=== PATIENT | male | born 1950 | race Caucasian/White ===

== ENCOUNTER → 2021-07-12 | Outpatient (CLI) | payer BC ==
--- NOTE | 2021-07-12 15:38 | CT ---
EXAMINATION TYPE: CT abdomen pelvis w con DATE OF EXAM: 07/12/2021 COMPARISON: NONE HISTORY: 70-year-old male R10.31, abdominal and pelvic pain, left lower quadrant pain, left flank mayte n. TECHNIQUE: Contiguous axial scanning of the abdomen and pelvis following administration of 100 ml Iso elma-370 IV contrast. Delayed images through the kidneys and coronal/sagittal reconstructions perform ed. CT DLP: 1920 mGycm Automated exposure control for dose reduction was used. FINDINGS: Heart normal size without pericardial effusion. Volume loss/consolidation anterior basilar segment left lower lobe. No pleural effusion. There is mao e interstitial changes and possible mosaic attenuation/groundglass in the visualized lower lobes. No pleural effusion. Liver borderline in size at 17.4 cm. Tiny 7 mm cyst posterior right liver lobe. Portal venous system is patent. No biliary ductal dilatation. Gallbladder, right adrenal gland, spleen, and mildly atrophic pancreas show no gross abnormalities. There is either a 2.3 cm cyst or lipid rich adenoma of the left adrenal gland. Right kidney slightly malrotated. Multiple cysts are present, largest measuring 10.6 cm. Multiple sma ller cysts left kidney, largest measuring 2.3 cm. Symmetric uptake of contrast by each kidney. No dilated small bowel, free fluid, or free air. No mesenteric or retroperitoneal lymphadenopathy. Mild overall stool burden. Normal appendix. Mildly redundant sigmoid colon. No pericolic inflammatory change. Prostate gland measures 5.3 cm wide. Bladder is collapsed but shows mild to moderate cervical vertebr al wall thickening and slight perivesicular fat stranding. No abnormal fluid collection in the pelvis or pelvic lymphadenopathy. Moderate atelectatic plaque and calcification is present throughout the abdominal aorta and iliac art eries. Aneurysm infrarenal abdominal aorta up to 4.7 cm with crescentic plaque narrowing the lumen do wn to 2.3 cm. 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 Reconstitution at the common iliac artery bifurcation. Mild fusiform aneurysm proximal left internal iliac artery at 1.2 cm. CTA reported separately. Bones: Mild degenerative change of the hips. Degenerative change left greater than right SI joints wi th some bony ankylosis on the left. Hypertrophic facet arthropathy mid to lower lumbar spine. Grade 1 retrolisthesis L3-L4. Posterior dis c bulges and herniations L3-S1 levels. No high-grade canal compromise seen. IMPRESSION: 1. CT ANGIOGRAPHY OF THE CHEST, ABDOMEN, AND PELVIS REPORTED SEPARATELY. 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 ADDITIONAL 4 CM LONG SEGMENT OCCLUSION RIGHT COMMON ILIAC ARTERY. 2. MULTIPLE BILATERAL RENAL CYSTS, LARGEST ON THE RIGHT MEASURING UP TO 10.6 CM. LARGEST ON THE LEFT MEASURING 2.3 CM. 3. INCIDENTAL 2.3 CM CYST VERSUS LIPID RICH LEFT ADRENAL ADENOMA. 4. CIRCUMFERENTIAL BLADDER WALL THICKENING COULD REPRESENT CYSTITIS OR CHRONIC BLADDER WALL HYPERTROP HY. THERE IS PROSTATOMEGALY AND 5.3 CM WIDE. CORRELATE FOR BPH. 5. VOLUME LOSS AND/OR CONSOLIDATION ANTERIOR BASILAR SEGMENT LEFT LOWER LOBE. CORRELATE FOR ANY SYMPT OMS OF PNEUMONIA. THREE-MONTH FOLLOW-UP CT CHEST TO REASSESS.
== END | disposition home or self-care (01) ==
LOC: RADCTMAIN 10:25
PROVIDERS: ATTEND Urology
DX: I71.4 Abdominal aortic aneurysm, without rupture (principal); I72.3 Aneurysm of iliac artery; I74.5 Embolism and thrombosis of iliac artery; N28.1 Cyst of kidney, acquired; N32.89 Other specified disorders of bladder; N40.0 Benign prostatic hyperplasia without lower urinary tract symptoms
CPT/HCPCS: 74177; 36415; Q9967

== ENCOUNTER → 2021-07-12 | Outpatient (CLI) | payer BC ==
--- NOTE | 2021-07-12 15:58 | CT ---
CT angiogram of the thoracic and abdominal aorta HISTORY: Aneurysm, I 71.4 Helical acquisition obtained through the aorta pre- and postadministration of 100 cc Isovue-370 IV. A utomated exposure control for dose reduction. Three-dimensional reconstructions were performed on an alternate workstation. Correlation to CT scan 07/12/2021, bone scan to 07/30/2021 Atheromatous changes are present within the thoracic and abdominal aorta. No evident dissection. Root of the aorta measures approximately 3.5 cm. Proximal ascending aorta is 3.9 cm. Proximal descending aorta measures 2.9 cm, at the level of the diaphragmatic hiatus the aorta measures 2.7 cm. There are 3 super aortic branch vessels. The innominate, left and right common carotid, left and right subclavi an arteries are patent centrally. The celiac axis, superior mesenteric artery, renal arteries, inferi or mesenteric artery are patent. There is hypertrophy lumbar branch present at L3-L4 level in the rig ht. Infrarenal abdominal aortic aneurysm is present measuring 4.7 cm. There is a large amount of yair nal plaque. Left common iliac artery is aneurysmal and measures 2.6 cm, internal iliac arteries, exte rnal iliac arteries are patent bilaterally, the right common iliac artery is occluded proximally, the re may be reconstitution by the internal iliac artery. Common femoral arteries, proximal deep and sup erficial femoral arteries are patent. Interstitial changes are present within the lungs. Centrilobular and paraseptal emphysema is present. There are areas of pleural thickening present. Some probable lingular scarring is suspected. Of note in the right ilium inferiorly there is an area of lucency extending from the sacroiliac joint with some associated sclerosis, differential includes insufficiency fracture. See dictated report for abdominal findings CT same date. IMPRESSION: Infrarenal abdominal aortic aneurysm. Right common iliac artery occlusion. Additional fin dings within the abdomen dictated in separate report. Consider insufficiency fracture ilium although findings may be chronic, no abnormal activity noted on bone scan.
== END | disposition home or self-care (01) ==
LOC: RADCTMAIN 10:19
PROVIDERS: ATTEND Internal Medicine Interventional Cardiology
DX: I71.4 Abdominal aortic aneurysm, without rupture (principal); I74.5 Embolism and thrombosis of iliac artery
CPT/HCPCS: 82565; 84520; 71275; 36415; 74174; Q9967

== ENCOUNTER → 2021-07-12 | Outpatient (CLI) | payer BC ==
--- NOTE | 2021-07-12 13:40 | NM ---
EXAMINATION TYPE: NM bone scan whole body DATE OF EXAM: 07/12/2021 COMPARISON: NONE HISTORY: Low back pain Delayed whole-body scanning was performed following the injection of 23 mCi Tc 99m MDP. Images acqui red 3 hours post injection. FINDINGS: Mild degenerative uptake about the shoulders, sternoclavicular joints, hips knees and bilateral great toes. Degenerative uptake mid thoracic spine and lower lumbar spine. No evidence for intense uptake to suggest fracture or osseous lesion. IMPRESSION: Degenerative uptake as noted.
== END | disposition home or self-care (01) ==
LOC: RADNMMAIN 09:25
PROVIDERS: ATTEND Physical Medicine & Rehabilitation
DX: M19.012 Primary osteoarthritis, left shoulder (principal); M19.011 Primary osteoarthritis, right shoulder; M16.0 Bilateral primary osteoarthritis of hip; M17.0 Bilateral primary osteoarthritis of knee; M19.072 Primary osteoarthritis, left ankle and foot; M19.071 Primary osteoarthritis, right ankle and foot; M47.814 Spondylosis without myelopathy or radiculopathy, thoracic region; M47.816 Spondylosis without myelopathy or radiculopathy, lumbar region
CPT/HCPCS: 78306; A9503

== ENCOUNTER 2022-12-20 09:06 | Inpatient (IN) | payer OTHER, MEDICARE ==
[2022-12-20] MEDS ORDERED: ASPIRIN 81 MG PO STA (09:29)
--- NOTE | 2022-12-20 09:31 | ED ---
General Adult HPI - General Chief complaint: Chest Pain Stated complaint: Chest Pain Time Seen by Provider: 12/20/22 09:16 Source: patient Mode of arrival: ambulatory Limitations: no limitations - History of Present Illness Initial comments: Dictation was produced using [employer] dictation software. please excuse any grammatical, word or spelling errors. Chief Complaint: 72-year-old male with past medical history coronary artery disease, status post stents presents to emergency department for chest pain History of Present Illness: Patient 72-year-old male presents emergency department with chest pain. States that on Saturday he had an episode of sharp chest pain to his left upper chest lasted approximately 30 minutes. States it was associated with nausea vomiting. States that that resolved on its own however he is left with a ongoing chest pressure since then. Patient states that pressure is nonradiating. It's minimal with a score of 1 on a 1-10 pain scale. He is accompanied by his who was worried that he may have a heart attack. The ROS documented in this emergency department record has been reviewed and confirmed by me. Those systems with pertinent positive or negative responses have been documented in the HPI. All other systems are other negative and/or noncontributory. - Related Data Home Medications Medication Instructions Recorded Confirmed Ascorbic Acid [Vitamin C] 1,000 mg PO DAILY 12/20/22 12/20/22 Aspirin EC [Ecotrin Low Dose] 81 mg PO DAILY 12/20/22 12/20/22 Cholecalciferol [Vitamin D3 (125 125 mcg PO DAILY 12/20/22 12/20/22 Mcg = 5000 Iu)] Ibuprofen [Motrin] 600 mg PO Q8HR PRN 12/20/22 12/20/22 Losartan Potassium 100 mg PO DAILY 12/20/22 12/20/22 Metoprolol Tartrate [Lopressor] 25 mg PO BID 12/20/22 12/20/22 Nitroglycerin Sl Tabs [Nitrostat] 0.4 mg SUBLINGUAL Q5M PRN 12/20/22 12/20/22 Pantoprazole [Protonix] 40 mg PO DAILY 12/20/22 12/20/22 Pravastatin Sodium [Pravachol] 80 mg PO HS 12/20/22 12/20/22 Tamsulosin [Flomax] 0.4 mg PO DAILY 12/20/22 12/20/22 traMADol HCL 50 mg PO TID PRN 12/20/22 12/20/22 Allergies Allergy/AdvReac Type Severity Reaction Status Date / Time No Known Allergies Allergy Verified 12/20/22 10:27 Review of Systems ROS Statement: Those systems with pertinent positive or pertinent negative responses have been documented in the HPI. ROS Other: All systems not noted in ROS Statement are negative. Past Medical History Past Medical History: GERD/Reflux, Hyperlipidemia, Hypertension, Myocardial Infarction ([place]), Prostate Disorder Additional Past Medical History / Comment(s): AAA History of Any Multi-Drug Resistant Organisms: None Reported Past Surgical History: Heart Catheterization With Stent, Hernia Repair Past Psychological History: No Psychological Hx Reported Smoking Status: Current every day smoker Past Alcohol Use History: None Reported Past Drug Use History: None Reported General Exam - General Exam Comments Initial Comments: PHYSICAL EXAM: General Impression: Alert and oriented x3, not in acute distress HEENT: Normocephalic atraumatic, extra-ocular movements intact, pupils equal and reactive to light bilaterally, mucous membranes moist. Cardiovascular: Heart regular rate and rhythm Chest: Able to complete full sentences, no retractions, no tachypnea Abdomen: abdomen soft, non-tender, non-distended, no organomegaly Musculoskeletal: Pulses present and equal in all extremities, no peripheral edema Motor: no focal deficits noted Neurological: CN II-XII grossly intact, no focal motor or sensory deficits noted Skin: Intact with no visualized rashes Psych: Normal affect and mood Limitations: no limitations Course Vital Signs 12/20/22 12/20/22 09:10 09:20 Temperature 98.5 F Pulse Rate 93 Respiratory 16 18 Rate Blood Pressure 117/66 O2 Sat by Pulse 96 Oximetry EKG Findings - EKG Comments: EKG Findings:: My EKG interpretation: Ventricular rate 75, sinus rhythm,. 145, QRS 92, QTC 418. No [place] prolongation, no QTC prolongation, no ST or T-wave changes noted. Overall, this EKG is unremarkable Medical Decision Making - Medical Decision Making Was pt. sent in by a medical professional or institution (, PA, SECURITIES ATTORNEY, urgent care, hospital, or care home...) When possible be specific @ -No Did you speak to anyone other than the patient for history (EMS, parent, family, police, friend...)? What history was obtained from this source @ -No Did you review nursing and triage notes (agree or disagree)? Why? @ -I reviewed and agree with nursing and triage notes Were old charts reviewed (outside hosp., previous admission, EMS record, old EKG, old radiological studies, urgent care reports/EKG's, care home records)? Report findings @ -Imaging was reviewed showing the patient has history of aneurysms Differential Diagnosis (chest pain, altered mental status, abdominal pain women, abdominal pain men, vaginal bleeding, musculoskeletal, weakness, fever, dyspn ea, syncope, headache, dizziness, GI bleed, back pain, seizure, CVA, palpatations, mental health)? @ -Differential Chest Pain: Stable Angina, Unstable Angina, STEMI, NSTEMI Aortic Dissection, Pneumothorax, Musculoskeletal, Esophageal Spasm GERD, Cholecystitis, Pancreatitis, Zoster, this is not meant to be an all-inclusive list. EKG interpreted by me (3pts min.). @ -See above X-rays interpreted by me (1pt min.). @ -Chest x-ray shows possible pneumonia CT interpreted by me (1pt min.). @ -None done U/S interpreted by me (1pt. min.). @ -None done What testing was considered but not performed or refused? (CT, X-rays, U/S, labs)? Why? @ -None What meds were considered but not given or refused? Why? @ -None Did you discuss the management of the patient with other professionals (professionals i.e. , PA, SECURITIES ATTORNEY, lab, RT, psych nurse, clinical social worker, database administration associate, teacher, asset protection officer, block and case maker)? Give summary @ -Case discussed with [facility] hospitalist group for admission Was smoking cessation discussed for >3mins.? @ -No Was critical care preformed (if so, how long)? @ -No Were there social determinants of health that impacted care today? How? (Homelessness, low income, unemployed, alcoholism, drug addiction, transportation, low edu. Level, literacy, decrease access to med. care, custodial, rehab)? @ -No Was there de-escalation of care discussed even if they declined (Discuss DNR or withdrawal of care, Hospice)? DNR status @ -No What co-morbidities impacted this encounter? (DM, HTN, Smoking, COPD, CAD, Ca ncer, CVA, ARF, Chemo, Hep., AIDS, mental health diagnosis, sleep apnea, morbid obesity)? @ -History of CAD Was patient admitted / discharged? Hospital course, mention meds given and route, prescriptions, significant lab abnormalities, going to OR and other pert inent info. @ -72-year-old male presents emergency department for chest pain. Vital signs are stable. Patient is atypical with typical features. Laboratory evaluation obtained. Labs are within acceptable limits so for some mild leukocytosis. Troponin is negative. Chest x-ray shows patchy infiltrates suspicious for pneumonia. Patient does not have any overwhelming respite or infectious symptoms. Patient be admitted for cardiac monitoring. Undiagnosed new problem with uncertain prognosis? @ -No Drug Therapy requiring intensive monitoring for toxicity (Heparin, Nitro, Insulin, Cardizem)? @ -No Were any procedures done? @ -No Diagnosis/symptom? Acute, or Chronic, or Acute on Chronic? Uncomplicated (without systemic symptoms) or Complicated (systemic symptoms)? @ -chest pain Side effects of treatment? @ -No Exacerbation, Progression, or Severe Exacerbation? @ -No Poses a threat to life or bodily function? How? (Chest pain, [place], [place], pneumonia, PE, COPD, DKA, ARF, appy, cholecystitis, CVA, Diverticulitis, Homicidal, Suicidal, threat to staff... and all critical care pts) @ -yes - Lab Data Result diagrams: 12/20/22 09:39 12/20/22 09:39 Lab Results 12/20/22 12/20/22 12/20/22 Range/Units 09:39 09:39 09:39 WBC 12.6 H (3.8-10.6) k/uL RBC 4.19 L (4.30-5.90) m/uL Hgb 13.5 (13.0-17.5) gm/dL Hct 38.6 L (39.0-53.0) % MCV 92.1 (80.0-100.0) fL MCH 32.1 (25.0-35.0) pg MCHC 34.9 (31.0-37.0) g/dL RDW 14.0 (11.5-15.5) % Plt Count 168 (150-450) k/uL MPV 8.2 Neutrophils % 86 % Lymphocytes % 7 % Monocytes % 5 % Eosinophils % 1 % Basophils % 0 % Neutrophils # 10.9 H (1.3-7.7) k/uL Lymphocytes # 0.8 L (1.0-4.8) k/uL Monocytes # 0.7 (0-1.0) k/uL Eosinophils # 0.1 (0-0.7) k/uL Basophils # 0.0 (0-0.2) k/uL PT 10.4 (9.0-12.0) sec INR 1.0 (<1.2) APTT 27.3 (22.0-30.0) sec Sodium 138 (137-145) mmol/L Potassium 3.4 L (3.5-5.1) mmol/L Chloride 103 (98-107) mmol/L Carbon Dioxide 24 (22-30) mmol/L Anion Gap 11 mmol/L BUN 18 (9-20) mg/dL Creatinine 0.83 (0.66-1.25) mg/dL Est GFR (CKD-EPI)AfAm >90 (>60 ml/min/1.73 sqM) Est GFR (CKD-EPI)NonAf 87 (>60 ml/min/1.73 sqM) Glucose 118 H (74-99) mg/dL Calcium 9.1 (8.4-10.2) mg/dL Magnesium 1.8 (1.6-2.3) mg/dL Total Bilirubin 1.4 H (0.2-1.3) mg/dL AST 20 (17-59) U/L ALT 16 (4-49) U/L Alkaline Phosphatase 89 (38-126) U/L Troponin I (0.000-0.034) ng/mL Total Protein 6.7 (6.3-8.2) g/dL Albumin 3.6 (3.5-5.0) g/dL 12/20/22 Range/Units 09:39 WBC (3.8-10.6) k/uL RBC (4.30-5.90) m/uL Hgb (13.0-17.5) gm/dL Hct (39.0-53.0) % MCV (80.0-100.0) fL MCH (25.0-35.0) pg MCHC (31.0-37.0) g/dL RDW (11.5-15.5) % Plt Count (150-450) k/uL MPV Neutrophils % % Lymphocytes % % Monocytes % % Eosinophils % % Basophils % % Neutrophils # (1.3-7.7) k/uL Lymphocytes # (1.0-4.8) k/uL Monocytes # (0-1.0) k/uL Eosinophils # (0-0.7) k/uL Basophils # (0-0.2) k/uL PT (9.0-12.0) sec INR (<1.2) APTT (22.0-30.0) sec Sodium (137-145) mmol/L Potassium (3.5-5.1) mmol/L Chloride (98-107) mmol/L Carbon Dioxide (22-30) mmol/L Anion Gap mmol/L BUN (9-20) mg/dL Creatinine (0.66-1.25) mg/dL Est GFR (CKD-EPI)AfAm (>60 ml/min/1.73 sqM) Est GFR (CKD-EPI)NonAf (>60 ml/min/1.73 sqM) Glucose (74-99) mg/dL Calcium (8.4-10.2) mg/dL Magnesium (1.6-2.3) mg/dL Total Bilirubin (0.2-1.3) mg/dL AST (17-59) U/L ALT (4-49) U/L Alkaline Phosphatase (38-126) U/L Troponin I <0.012 (0.000-0.034) ng/mL Total Protein (6.3-8.2) g/dL Albumin (3.5-5.0) g/dL Disposition Clinical Impression: Chest pain Disposition: ADMITTED IP TO THIS [facility] Condition: Fair Referrals: Elliott Haile MD [REFERRING] - 1-2 days Decision Time: 11:00
[2022-12-20 09:56] LABS: Basophils % (A) 0 %; Eosinophils # (A) 0.1 k/uL (0-0.7); Eosinophils % (A) 1 %; HCT 38.6 % (39.0-53.0); HGB 13.5 gm/dL (13.0-17.5); Lymphocytes # (A) 0.8 k/uL (1.0-4.8); Lymphocytes % (A) 7 %; MCH 32.1 pg (25.0-35.0); MCHC 34.9 g/dL (31.0-37.0); MCV 92.1 fL (80.0-100.0); Mean Platelet Volume 8.2; Monocytes # (A) 0.7 k/uL (0-1.0); Monocytes % (A) 5 %; Neutrophils # (A) 10.9 k/uL (1.3-7.7); Neutrophils % (A) 86 %; Platelet Count 168 k/uL (150-450); RBC 4.19 m/uL (4.30-5.90); WBC 12.6 k/uL (3.8-10.6)
[2022-12-20 10:09] LABS: ALT 16 U/L (4-49); AST 20 U/L (17-59); African American GFR (CKD) >90 (>60 ml/min/1.73 sqM); Albumin 3.6 g/dL (3.5-5.0); Alkaline Phosphatase 89 U/L (38-126); Anion Gap 11 mmol/L; Blood Urea Nitrogen 18 mg/dL (9-20); Calcium 9.1 mg/dL (8.4-10.2); Carbon Dioxide 24 mmol/L (22-30); Chloride 103 mmol/L (98-107); Glucose 118 mg/dL (74-99); Magnesium 1.8 mg/dL (1.6-2.3); Non-African American GFR(CKD) 87 (>60 ml/min/1.73 sqM); Potassium 3.4 mmol/L (3.5-5.1); Sodium 138 mmol/L (137-145); Total Bilirubin 1.4 mg/dL (0.2-1.3); Total Protein 6.7 g/dL (6.3-8.2)
[2022-12-20 10:13] LABS: Partial Thromboplastin Time 27.3 sec (22.0-30.0); Prothrombin Time 10.4 sec (9.0-12.0)
--- NOTE | 2022-12-20 10:21 | XR ---
EXAMINATION TYPE: XR chest 2V DATE OF EXAM: 12/20/2022 COMPARISON: 04/15/2012 HISTORY: 72-year-old male with chest pain TECHNIQUE: PA and lateral views FINDINGS: Heart normal size. Aorta and pulmonary vasculature within normal limits. Mild diffuse interstitial de nsity has increased from patient's older prior. Prominent patchy left basilar opacity. No pleural eff usion. IMPRESSION: Prominent patchy consolidation throughout the left lower lung. Correlate for pneumonia.
[2022-12-20] MEDS ORDERED: NITROGLYCERIN SL TABS 0.4 MG TAB SUBLINGUAL PRN (11:28)
[2022-12-20] MEDS ORDERED: AZITHROMYCIN 500 MG in SODIUM CHLORIDE 0.9% 250 ML IVPB STA (11:30)
[2022-12-20] MEDS ORDERED: cefTRIAXone IN SWFI 1,000 MG/10 ML SYRINGE IVP STA (11:30)
[2022-12-20] MEDS ORDERED: traMADol 50 MG TAB PO PRN (15:57)
--- NOTE | 2022-12-20 18:30 | CT ---
EXAMINATION TYPE: CT angio chest DATE OF EXAM: 12/20/2022 COMPARISON: CT to 07/30/2021 HISTORY: Positive D-dimer. CT DLP: 359 mGycm. Automated Exposure Control for Dose Reduction was Utilized. CONTRAST: CTA scan of the thorax is performed with IV Contrast, patient injected with 71 mL of Isovue 300. MIP Images are created on CT scanner and reviewed. 3D reconstructed images are created on an independent workstation and reviewed. FINDINGS: LUNGS: The anterior half of the basal segments of the left lower lobe shows dense consolidation and v olume loss consistent with atelectasis and/or bronchopneumonia, with the latter favored radiographica lly. Baseline interstitial lung disease changes are noted, though some of the interstitial changes ma y be acute/subacute. MEDIASTINUM: There is satisfactory enhancement of the pulmonary artery and its branches, with no CT e vidence for pulmonary embolism. There is a generalized pattern of mildly enlarged lymph nodes in the bilateral hilar positions as wel l as the superior and inferior mediastinum. This pattern suggests inflammatory etiology. There is mild cardiomegaly with prominent left a1nd right coronary calcifications. No pericardial eff usion. The aorta is mildly tortuous, with prominent atherosclerotic intimal calcifications and lumina l irregularity throughout its extent. The ascending aorta measures up to 37 mm and the descending aor ta measures up to 32 mm. OTHER: Left adrenal nodule is redemonstrated, as is partially-visualized left renal hypodense focus w hich can be fully characterized with dedicated CT abdomen with contrast. IMPRESSION: 1. Negative for pulmonary embolism. 2. Suspect bronchopneumonia with mild diffuse adenopathy pattern, suggests inflammatory etiology, 9 week follow-up CT can be used to prove resolution of the findings. 3. Aortic ectasia. 4. Cardiomegaly with coronary calcifications.
[2022-12-20] MEDS: METOPROLOL TARTRATE 25 MG TAB PO SCH (19:45)
[2022-12-20] MEDS: PRAVASTATIN SODIUM 80 MG TAB PO SCH (19:45)
--- NOTE | 2022-12-20 20:05 | P.CNPUL ---
History of Present Illness Consult date: 12/20/22 Reason for consult: chest pain History of present illness: 72-year-old male patient, known history of coronary artery disease with known history of coronary stenting presented emergency because of chest pain. Pain was sharp involving the left upper chest area. He also reports some nausea and emesis. The patient also had the chills. The patient started on Saturday and that is old on its own, and subsequently, he started feeling recurrent chest discomfort without any radiation. The main concern at time of admission was an acute coronary event and for that reason the patient came into the hospital. He has known history of hypertension hyperlipidemia and abdominal aortic aneurysm. In the emergency, the patient was hemodynamically stable. The WBC count was at 12.6 with a hemoglobin 15.5 and a platelet count of 168. Sodium was at 138. BAL was 18 with a creatinine of 0.8. His LFTs were essentially within normal limits normal coagulation profile. His troponin was negative. His EKG showed no acute ischemic changes and he was in sinus rhythm. The chest x-ray showed some patchy consolidation involving the left lower lobe and based on that the patient was given a CT angiogram. The CT angiogram showed a left lower lobe pulmonary consolidation and addition to some chronic interstitial changes bilaterally involving the subpleural distribution and some limited upper lobe emphysematous changes. There was no evidence of scattered mediastinal lymphadenopathy the largest being in the subcarinal area. Based on that, the patient was hospitalized. He was started on accommodation of Rocephin and Zithromax. He is currently on room air oxygen. Hemodynamically stable. No evidence of any pulmonary embolism based on the computed tomography scan of the chest. He is known to have an infrarenal abdominal aortic aneurysm and his proximal ascending aorta was measuring around 3.9 cm based on a CT angiogram from 07/12/2021. The infrarenal abdominal aortic aneurysm was measuring 4.7 cm in size and there was large amount of luminal plaquing. Review of Systems Constitutional: Denies chills, Denies fever Eyes: denies as per HPI, denies blurred vision, denies bulging eye, denies decreased vision, denies diplopia, denies discharge, denies dry eye, denies irritation, denies itching, denies pain, denies photophobia, denies loss of peripheral vision, denies loss of vision, denies tunnel vision/blind spots Ears: deny: decreased hearing, ear discharge, earache, tinnitus Ears, nose, mouth and throat: Reports as per HPI Breasts: absent: as per HPI, gynecomastia Cardiovascular: Reports chest pain Respiratory: Reports as per HPI Gastrointestinal: Reports as per HPI Genitourinary: Reports as per HPI Musculoskeletal: Reports as per HPI Musculoskeletal: absent: ankle pain, ankle stiffness, ankle swelling Integumentary: Reports as per HPI Neurological: Reports as per HPI Psychiatric: Reports as per HPI Endocrine: Reports as per HPI Hematologic/Lymphatic: Reports as per HPI Allergic/Immunologic: Reports as per HPI Past Medical History Past Medical History: Coronary Artery Disease (CAD), GERD/Reflux, Hyperlipidemia, Hypertension, Myocardial Infarction (OR), Prostate Disorder Additional Past Medical History / Comment(s): AAA History of Any Multi-Drug Resistant Organisms: None Reported Past Surgical History: Heart Catheterization With Stent, Hernia Repair Past Psychological History: No Psychological Hx Reported Smoking Status: Current every day smoker Past Alcohol Use History: None Reported Past Drug Use History: None Reported Medications and Allergies Home Medications Medication Instructions Recorded Confirmed Type Ascorbic Acid [Vitamin C] 1,000 mg PO DAILY 12/20/22 12/20/22 History Aspirin EC [Ecotrin Low Dose] 81 mg PO DAILY 12/20/22 12/20/22 History Cholecalciferol [Vitamin D3 (125 125 mcg PO DAILY 12/20/22 12/20/22 History Mcg = 5000 Iu)] Ibuprofen [Motrin] 600 mg PO Q8HR PRN 12/20/22 12/20/22 History Losartan Potassium 100 mg PO DAILY 12/20/22 12/20/22 History Metoprolol Tartrate [Lopressor] 25 mg PO BID 12/20/22 12/20/22 History Nitroglycerin Sl Tabs [Nitrostat] 0.4 mg SUBLINGUAL Q5M PRN 12/20/22 12/20/22 History Pantoprazole [Protonix] 40 mg PO DAILY 12/20/22 12/20/22 History Pravastatin Sodium [Pravachol] 80 mg PO HS 12/20/22 12/20/22 History Tamsulosin [Flomax] 0.4 mg PO DAILY 12/20/22 12/20/22 History traMADol HCL 50 mg PO TID PRN 12/20/22 12/20/22 History Allergies Allergy/AdvReac Type Severity Reaction Status Date / Time No Known Allergies Allergy Verified 12/20/22 10:27 Physical Exam Vitals: Vital Signs Temp Pulse Resp BP Pulse Ox 12/20/22 14:24 64 16 128/74 98 12/20/22 09:20 18 12/20/22 09:10 98.5 F 93 16 117/66 96 Intake and Output 12/20/22 12/20/22 12/20/22 06:59 14:59 22:59 Other: Weight 80.739 kg General Impression: Alert and oriented x3, not in acute distress Head exam was generally normal. There was no scleral icterus or corneal arcus. Mucous membranes were moist. HEENT: Normocephalic atraumatic, extra-ocular movements intact, pupils equal and reactive to light bilaterally, mucous membranes moist. Cardiovascular: Heart regular rate and rhythm Chest: Able to complete full sentences, no retractions, no tachypnea, breath sounds are slightly diminished in the left compared to right, Abdomen: abdomen soft, non-tender, non-distended, no organomegaly Musculoskeletal: Pulses present and equal in all extremities, no peripheral edema Motor: no focal deficits noted Neurological: CN II-XII grossly intact, no focal motor or sensory deficits noted Skin: Intact with no visualized rashes Psych: Normal affect and mood Results - Laboratory Findings CBC and BMP: 12/20/22 09:39 12/20/22 09:39 PT/INR, D-dimer PT 10.4 sec (9.0-12.0) 12/20/22 09:39 INR 1.0 (<1.2) 12/20/22 09:39 D-Dimer 1.79 mg/L FEU (<0.60) H 12/20/22 16:02 Abnormal lab findings: Abnormal Labs 12/20/22 12/20/22 12/20/22 09:39 09:39 16:02 WBC 12.6 H RBC 4.19 L Hct 38.6 L Neutrophils # 10.9 H Lymphocytes # 0.8 L D-Dimer 1.79 H Potassium 3.4 L Glucose 118 H Total Bilirubin 1.4 H - Diagnostic Findings Chest x-ray: image reviewed CT scan - chest: image reviewed Assessment and Plan Plan: Left lung consolidation, suspicious for pneumonia with secondary left-sided chest pain. No other the CAT scan of the chest also showed evidence of mediastinal lymphadenopathy largest the subcarinal area and some background COPD with upper lobe predominance and some interstitial changes in the lung bases. No evidence of any pulmonary embolism Coronary artery disease with previous coronary stenting. EKG is normal. Troponins are not elevated. COPD with upper lobe predominance Chronic smoker Mild leukocytosis Hypertension Hyperlipidemia BPH Monitor abdominal aortic aneurysm measuring 4.7 cm in size, infrarenal and the patient is a 3.9 cm ascending aortic aneurysm. Plan Cover the patient with accommodation of Rocephin and Zithromax Obtain pro-calcitonin level Monitored a mediastinal lymphadenopathy and the abdominal aortic aneurysm on outpatient basis We'll continue to follow
--- NOTE | 2022-12-20 21:29 | HP ---
HISTORY AND PHYSICAL CHIEF COMPLAINT: Chest pain and nausea. HISTORY OF PRESENT ILLNESS: This is a 72-year-old gentleman with a past medical history of multiple medical problems including hypertension and hyperlipidemia, who was apparently working in the garage with the diesel fumes, and some time after that, the patient has had complaints of some nausea and chest pain, and the patient came to [facility] and admitted for further evaluation and treatment. The chest pain was sharp, lasted about 30 minutes. There is no history of any fever, rigor, or chills at this time. The chest x- ray also showed some patchy consolidation. PAST MEDICAL HISTORY: Hypertension, hyperlipidemia, and history of AAA which was seen in the CAT scan. Rest of the history and rest of the chart are also reviewed. HOME MEDICATIONS: Reviewed include Flomax. Doses and rest of the medications are reviewed. ALLERGIES: None. FAMILY HISTORY: No history of heart disease or strokes in the family. SOCIAL HISTORY: History of smoking. REVIEW OF SYSTEMS: Fourteen-point review is negative except as mentioned earlier. PHYSICAL EXAMINATION: VITAL SIGNS: Pulse is 93, blood pressure 117/66, respirations 16. HEENT: Conjunctivae are normal. NECK: No jugular venous distention. CARDIOVASCULAR: S1 and S2 muffled. RESPIRATORY: Breath sounds diminished at the bases. ABDOMEN: Soft and nontender. MUSCULOSKELETAL: No edema. NERVOUS SYSTEM: Nonfocal. SKIN: No ulcers or rashes. JOINTS: No active deforming arthropathy. LABORATORY DATA: WBC 12.6. Sodium 138, potassium 3.4. ASSESSMENT: 1. Chest pain, possible unstable angina. 2. Possible gastroesophageal reflux disease. 3. Possible pneumonia. 4. Hypertension. 5. Hyperlipidemia. 6. History of myocardial infarction. 7. History of coronary artery disease and stent. RECOMMENDATIONS AND DISCUSSION: In this 72-year-old gentleman presented with multiple complex medical issues, we will monitor the patient closely. Continue the current medications. Cardiology consultation. I would also recommend to rule out myocardial infarction. Unstable angina protocol. Resume the home medications. I would recommend to continue the antibiotics. Pulmonary consultation. The patient has multiple complex medical issues as mentioned. I would also recommend COVID and D-dimer also. If the D-dimer is positive, CT angio chest also will be ordered. Prognosis is guarded. Further recommendations to follow. See orders for the details. MMODL / IJN: [id number] /
--- NOTE | 2022-12-21 07:40 | US ---
EXAMINATION TYPE: US gallbladder DATE OF EXAM: 12/21/2022 COMPARISON: CT CLINICAL INDICATION: Male, 72 years old with history of cholelithiasis; Pain TECHNIQUE: Multiple sonographic images of the right upper quadrant are obtained. FINDINGS: EXAM MEASUREMENTS: Liver Length: 15.4 cm Gallbladder Wall: 0.3 cm CBD: 0.4 cm Right Kidney: 13.4 x 6.0 x 5.9 cm QUILL STRIPPER NOTES: Pancreas: Obscured by bowel gas Liver: Visualized portions appeared wnl, limited views- visualized mostly intercostally Gallbladder: Lumen clear, multiple folds Evidence for sonographic Love's sign: No CBD: wnl Right Kidney: Large in size, multiple cysts/ largest cyst lateral= 11.8 x 9.4 x 11.2 cm IMPRESSION: 1. Right renal cysts. 2. No gallstones identified.
[2022-12-21] MEDS ORDERED: DOBUTamine DRIP for NUC MED 500 MG in DEXTROSE/WATER 1 250ML.BAG IV PRN (08:20)
--- NOTE | 2022-12-21 08:59 | P.PN ---
Subjective Progress Note Date: 12/21/22 72-year-old male patient, known history of coronary artery disease with known history of coronary stenting presented emergency because of chest pain. Pain was sharp involving the left upper chest area. He also reports some nausea and emesis. The patient also had the chills. The patient started on Saturday and that is old on its own, and subsequently, he started feeling recurrent chest discomfort without any radiation. The main concern at time of admission was an acute coronary event and for that reason the patient came into the hospital. He has known history of hypertension hyperlipidemia and abdominal aortic aneurysm. In the emergency, the patient was hemodynamically stable. The WBC count was at 12.6 with a hemoglobin 15.5 and a platelet count of 168. Sodium was at 138. BAL was 18 with a creatinine of 0.8. His LFTs were essentially within normal limits normal coagulation profile. His troponin was negative. His EKG showed no acute ischemic changes and he was in sinus rhythm. The chest x-ray showed some patchy consolidation involving the left lower lobe and based on that the pa tient was given a CT angiogram. The CT angiogram showed a left lower lobe pulmonary consolidation and addition to some chronic interstitial changes bilaterally involving the subpleural distribution and some limited upper lobe emphysematous changes. There was no evidence of scattered mediastinal ly mphadenopathy the largest being in the subcarinal area. Based on that, the patient was hospitalized. He was started on accommodation of Rocephin and Zithromax. He is currently on room air oxygen. Hemodynamically stable. No evidence of any pulmonary embolism based on the computed tomography scan of the chest. He is known to have an infrarenal abdominal aortic aneurysm and his proximal ascending aorta was measuring around 3.9 cm based on a CT angiogram from 07/12/2021. The infrarenal abdominal aortic aneurysm was measuring 4.7 cm in size and there was large amount of luminal plaquing. On today's evaluation of 12/21/2022, the patient is resting comfortably in bed. He has no significant chest pain today. He has some headache. He has also weight loss in the order of 20 pounds. This has been going on since last year. The told me that there was a CT angiogram of the thoracic aorta and abdominal wart the done back in July 2021. I reviewed the images again and based on my evaluation, there was some partial atelectasis of the left lower lobe subsegment. However, over the past 1-1/2 years, it seems that that has been significant progression. There is also evidence of ascending lymphadenopathy. I'm becoming more suspicious that there may be potentially an underlying malignancy. For now, the patient is going to be treated with antibiotics. I will plan to do a bronchoscopy after completing a 7-10 day course of antibiotics. If they abnormalities persist, obviously the patient will need a bronchoscopy. Meanwhile, the patient is going to have a dobutamine cardiac stress test today. Objective - Vital Signs Vital signs: Vital Signs Temp 98.7 F 12/21/22 07:00 Pulse 63 12/21/22 07:00 Resp 18 12/21/22 07:00 BP 140/75 12/21/22 07:00 Pulse Ox 94 L 12/21/22 07:00 FiO2 Intake & Output 12/20/22 12/21/22 12/21/22 18:59 06:59 18:59 Weight 80.739 kg Other: # Voids 2 - Exam General Impression: Alert and oriented x3, not in acute distress Head exam was generally normal. There was no scleral icterus or corneal arcus. Mucous membranes were moist. HEENT: Normocephalic atraumatic, extra-ocular movements intact, pupils equal and reactive to light bilaterally, mucous membranes moist. Cardiovascular: Heart regular rate and rhythm Chest: Able to complete full sentences, no retractions, no tachypnea, breath sounds are slightly diminished in the left compared to right, Abdomen: abdomen soft, non-tender, non-distended, no organomegaly Musculoskeletal: Pulses present and equal in all extremities, no peripheral edema Motor: no focal deficits noted Neurological: CN II-XII grossly intact, no focal motor or sensory deficits noted Skin: Intact with no visualized rashes Psych: Normal affect and mood - Labs CBC & Chem 7: 12/20/22 09:39 12/20/22 09:39 Labs: Abnormal Lab Results - Last 24 Hours (Table) 12/20/22 12/20/22 12/20/22 Range/Units 09:39 09:39 16:02 WBC 12.6 H (3.8-10.6) k/uL RBC 4.19 L (4.30-5.90) m/uL Hct 38.6 L (39.0-53.0) % Neutrophils # 10.9 H (1.3-7.7) k/uL Lymphocytes # 0.8 L (1.0-4.8) k/uL D-Dimer 1.79 H (<0.60) mg/L FEU Potassium 3.4 L (3.5-5.1) mmol/L Glucose 118 H (74-99) mg/dL Total Bilirubin 1.4 H (0.2-1.3) mg/dL Procalcitonin (0.02-0.09) ng/mL 12/20/22 Range/Units 18:37 WBC (3.8-10.6) k/uL RBC (4.30-5.90) m/uL Hct (39.0-53.0) % Neutrophils # (1.3-7.7) k/uL Lymphocytes # (1.0-4.8) k/uL D-Dimer (<0.60) mg/L FEU Potassium (3.5-5.1) mmol/L Glucose (74-99) mg/dL Total Bilirubin (0.2-1.3) mg/dL Procalcitonin 0.10 H (0.02-0.09) ng/mL Assessment and Plan Plan: Left lung consolidation, suspicious for pneumonia with secondary left-sided chest pain. No other the CAT scan of the chest also showed evidence of mediastinal lymphadenopathy largest the subcarinal area and some background COPD with upper lobe predominance and some interstitial changes in the lung bases. No evidence of any pulmonary embolism. I reviewed the CAT scan of the chest and I compared it to the earlier CAT scan that was done back in July 2021. There was some partial subsegmental atelectasis in the left lung and it seems that his abnormalities in the left lung has essentially progressed. Based on that, the patient may need a closer evaluation. Coronary artery disease with previous coronary stenting. EKG is normal. Troponins are not elevated. COPD with upper lobe predominance Chronic smoker Mild leukocytosis Hypertension Hyperlipidemia BPH Monitor abdominal aortic aneurysm measuring 4.7 cm in size, infrarenal and the patient is a 3.9 cm ascending aortic aneurysm. Plan Cover the patient with accommodation of Rocephin and Zithromax Obtain pro-calcitonin level mildly elevated I had a lengthy discussion with the at the bedside. I think is reasonable to complete a 7-10 day course of antibiotics and repeat the chest x-ray and if abnormalities persist, the patient will need a follow-up bronchoscopy for airway inspection and possible biopsies. This will be done within the next 2-3 weeks if there is no clear recovery. I would also suggest biopsying the mediastinal lymph nodes if the bronchoscopy is to be done. Cardiac stress test today Continue antibiotics We'll continue to follow
[2022-12-21] MEDS ORDERED: ASPIRIN 325 MG TAB PO SCH (09:00)
[2022-12-21] MEDS ORDERED: DOBUTamine DRIP for NUC MED 500 MG/250 ML BAG IV ONE (10:00)
[2022-12-21] MEDS: LOSARTAN 50 MG TAB PO SCH (10:52)
[2022-12-21] MEDS: CHOLECALCIFEROL 125 MCG (5000 IU) TABLET PO SCH (10:52)
[2022-12-21] MEDS: TAMSULOSIN 0.4 MG CAP.ER.24H PO SCH (10:52)
[2022-12-21] MEDS: METOPROLOL TARTRATE 25 MG TAB PO SCH ×2 (10:52→19:52)
[2022-12-21] MEDS: ASCORBIC ACID 500 MG TAB PO SCH (10:52)
[2022-12-21] MEDS: ASPIRIN 81 MG PO SCH (10:52)
--- NOTE | 2022-12-21 11:03 | CA ---
Dobutamine Stress Echocardiogram Report Ezio Posadas Age: 72 Gender: M : 1950 Exam Date: 12/21/2022 09:45 Exam Location: [facility] Ordering Physician: Tanika Webster Referring Physician: Darin VENTURA Binder Folder Operator: TRACE Technologist: Ht (in): 70 Wt (lb): 178 Procedure CPT: Indication: CP ICD-9 Codes: Rhythm: Patient History: Cardiac Medications: SEE CHART Medications in past 24 hours: Contrast: N/A Total Dose (mL): Stress Results Protocol: Dobutamine Peak Dose (???g/kg/min): 30 Duration (min:sec): Atropine:(mg) None Target HR: 125 Double Product: 11986 Resting HR: 69 Resting BP: 131 / 69 Peak HR: 136 Peak BP: 141 / 49 Max Predicted HR: 147 93 % Max Predicted HR Stress Summary: BP Response: Reason for Termination: Exceeded target heart rate (85% max predicted) Cardiac Symptoms: NO SYMPTOMS ECG Analysis Resting EKG: Baseline EKG shows normal sinus rhythm normal axis normal intervals Stress EKG: Patient was given intravenous dobutamine or a period of 9 minutes as per protocol achieving 85% of predicted maximal heart rate without chest pain at peak exercise there was [address] segment depression noted in inferolateral leads Arrhythmia: Echo Analysis Base Echo Analysis: Normal left ventricular size wall motion systolic function Low Echo Anaylsis: Normal Peak Echo Analysis: Normal hyperdynamic response Recovery Echo: Normal MEASUREMENTS (Male/Female) Normal Values CONCLUSIONS Abnormal stress test by EKG criteria Normal dobutamine stress echo Dr. Oswaldo Ibanez MD (Electronically Signed) Final Date: 21 December 2022 11:02
[2022-12-21 11:09] LABS: Basophils # (A) 0.05 X 10*3/uL (0.00-0.10); Basophils % (A) 0.5 %; Eosinophils # (A) 0.13 X 10*3/uL (0.04-0.35); Eosinophils % (A) 1.3 %; HCT 40.5 % (39.6-50.0); HGB 13.6 d/dL (12.0-15.0); Lymphocytes # (A) 1.19 X 10*3/uL (0.90-5.00); Lymphocytes % (A) 11.4 %; MCH 30.5 pg (27.0-32.0); MCHC 33.6 d/dL (32.0-37.0); MCV 90.8 FL (80.0-97.0); Mean Platelet Volume 10.7 FL (9.5-12.2); Monocytes # (A) 0.76 X 10*3/uL (0.20-1.00); Monocytes % (A) 7.3 %; NRBC Per 100 WBC 0 X 10*3/uL (0.00-0.01); Neutrophils # (A) 8.23 X 10*3/uL (1.80-7.70); Neutrophils % (A) 79.1 %; Platelet Count 206 X 10*3/uL (140-440); RBC 4.46 X 10*6/uL (4.40-5.60); RDW 13.7 % (11.5-14.5)
[2022-12-21] MEDS: AZITHROMYCIN 500 MG in SODIUM CHLORIDE 0.9% 250 ML IVPB SCH (11:29)
[2022-12-21 11:40] LABS: ALT 24 U/L (10-49); AST 32 U/L (14-35); Albumin 3.7 d/dL (3.8-4.9); Albumin/Globulin Ratio 1.32 Ratio (1.60-3.17); Alkaline Phosphatase 91 U/L (41-126); BUN/Creat Ratio 16.56 Ratio (12.00-20.00); Blood Urea Nitrogen 14.9 mg/dL (9.0-27.0); Calcium 9.5 mg/dL (8.7-10.3); Carbon Dioxide 21.6 mmol/L (21.6-31.8); Chloride 105 mmol/L (96-109); Chol/HDL Ratio 4.46 Ratio; Globulin 2.8 d/dL (1.6-3.3); Glucose 111 mg/dL (70-110); Potassium 3.9 mmol/L (3.5-5.5); Sodium 139 mmol/L (135-145); Total Bilirubin 0.7 mg/dL (0.3-1.2); Total Protein 6.5 d/dL (6.2-8.2)
--- NOTE | 2022-12-21 13:02 | P.CRDCN ---
History of Present Illness Consult date: 12/21/22 Reason for Consult (text): PE History of present illness: History of present illness: This is a 72-year-old male patient of Dr. Cotton with past medical history of coronary artery disease status post stent, hypertension, hyperlipidemia, periph eral vascular disease, abdominal aortic aneurysm followed by Dr. Adorno, family history of premature coronary artery disease. 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 He apparently had a vomiting episode 1. He did not take nitro glycerin at the time. Chest pain was located on the left side. He also has a cough with white sputum production. Pain is nonradiating. He did not tell his about the pain until yesterday and that is why hand up coming to the hospital. He has a history of smoking cigarettes one pack per day since a teenager. He denies any alcohol abuse and no illicit drug use. EKG sinus rhythm with nonspecific ST-T wave changes. Chest x-ray: Prominent patchy consolidation throughout the left lower lung. Correlate for pneumonia. CTA of the chest is negative for pulmonary embolism. Suspect bronchopneumonia with mild diffuse adenopathy pattern suggests inflammatory etiology. Recommend follow-up. Aortic ectasia. Cardiomegaly with coronary calcifications. WBC initially 12.6 now 10.4, hemoglobin 13.6. D-dimer 1.79. Electrolytes normal. Creatinine 0.9. Liver function tests are normal. Troponin negative 3. Cholesterol 115, triglycerides 161, LDL 57, HDL 25. Pro-calcitonin 0.1. Home cardiac medications: Aspirin 81 mg daily, hydrochlorothiazide 12.5 mg daily, losartan 100 mg daily, metoprolol tartrate 25 mg twice daily, nitroglycerin as needed, pravastatin 80 mg daily. Cardiac catheterization and PCI 04/2012 Echocardiogram 08/2018 revealed normal EF, mild TR, mild MR. Lexiscan stress test 04/2021 EF 67%, normal study. Dobutamine stress echo performed on this admission was normal. Review Of Systems: At the time of my evaluation: Constitutional: No fever, no chills. No weakness, fatigue or lethargy. EENT: No headache. No dizziness. Lungs: Reports shortness of breath, reports cough, no sputum production. No wheezing. Cardiovascular: No chest pain, no lower extremity edema. No palpitations. No paroxysmal nocturnal dyspnea. No orthopnea. No lightheadedness or dizziness. No syncopal episodes. Abdominal: No abdominal pain. No nausea, vomiting. No diarrhea. No constipation. No bloody or tarry stools. Genitourinary: No dysuria.. No urinary retention. Musculoskeletal: No myalgias. No muscle weakness, no frequent falls. No back pain. No neck pain. Integumentary: No wounds. No rash. No unusual bruising. Neurologic: No aphasia. No facial droop. No change in mentation. No head injury. No headache. Physical examination: Gen: This is a 72-year-old male. He is resting in bed and appears to be comfortable, no acute distress. VS: reviewed HEENT: Head is atraumatic, normocephalic. Pupils equal, round. Sclerae is anicteric. NECK: Supple. No JVD. LUNGS: Slightly diminished, essentially clear to auscultation. No intercostal retractions. HEART: Regular rate and rhythm. 2/6 systolic ejection murmur. ABDOMEN: Soft No tenderness. EXTREMITIES: No pedal edema. No calf tenderness. NEUROLOGICAL: Patient is awake, alert and oriented x3. Assessment: Chest pain, acute coronary syndrome ruled out Possible pneumonia, left side Hypertension Hyperlipidemia Peripheral vascular disease Abdominal aortic aneurysm followed by Dr. Adorno History of coronary artery disease with previous stent COPD Tobacco use and dependence Plan: Continue patient's home cardiac medications Obtain 2-D echocardiogram and Doppler study to assess cardiac structure and function--report is pending Further recommendations to follow based upon clinical course Thank you kindly for this consultation. Nurse practitioner note has been reviewed, I agree with documented findings and plan of care. Patient was seen and examined. Past Medical History Past Medical History: Coronary Artery Disease (CAD), GERD/Reflux, Hyperlipidemia, Hypertension, Myocardial Infarction (DC), Prostate Disorder Additional Past Medical History / Comment(s): AAA Last Myocardial Infarction Date:: 2011 History of Any Multi-Drug Resistant Organisms: None Reported Past Surgical History: Heart Catheterization With Stent, Hernia Repair Past Anesthesia/Blood Transfusion Reactions: No Reported Reaction Date of Last Stent Placement:: 2011 Past Psychological History: No Psychological Hx Reported Smoking Status: Current every day smoker Past Alcohol Use History: None Reported Past Drug Use History: None Reported Medications and Allergies Home Medications Medication Instructions Recorded Confirmed Type Ascorbic Acid [Vitamin C] 1,000 mg PO DAILY 12/20/22 12/20/22 History Aspirin EC [Ecotrin Low Dose] 81 mg PO DAILY 12/20/22 12/20/22 History Cholecalciferol [Vitamin D3 (125 125 mcg PO DAILY 12/20/22 12/20/22 History Mcg = 5000 Iu)] Ibuprofen [Motrin] 600 mg PO Q8HR PRN 12/20/22 12/20/22 History Losartan Potassium 100 mg PO DAILY 12/20/22 12/20/22 History Metoprolol Tartrate [Lopressor] 25 mg PO BID 12/20/22 12/20/22 History Nitroglycerin Sl Tabs [Nitrostat] 0.4 mg SUBLINGUAL Q5M PRN 12/20/22 12/20/22 History Pantoprazole [Protonix] 40 mg PO DAILY 12/20/22 12/20/22 History Pravastatin Sodium [Pravachol] 80 mg PO HS 12/20/22 12/20/22 History Tamsulosin [Flomax] 0.4 mg PO DAILY 12/20/22 12/20/22 History traMADol HCL 50 mg PO TID PRN 12/20/22 12/20/22 History Allergies Allergy/AdvReac Type Severity Reaction Status Date / Time No Known Allergies Allergy Verified 12/20/22 10:27 Physical Exam Vitals: Vital Signs Temp Pulse Pulse Resp BP BP Pulse Ox 12/21/22 02:23 98.7 F 67 18 125/67 96 12/20/22 19:42 69 17 121/56 94 L 12/20/22 18:09 99.3 F 73 18 143/72 94 L 12/20/22 14:24 64 16 128/74 98 12/20/22 09:20 18 12/20/22 09:10 98.5 F 93 16 117/66 96 Intake and Output 12/20/22 12/21/22 12/21/22 22:59 06:59 14:59 Other: # Voids 1 2 Weight 80.739 kg Results 12/21/22 06:41 12/21/22 06:41 Cardiac Enzymes 12/20/22 12/20/22 12/20/22 Range/Units 09:39 09:39 12:21 AST 20 (17-59) U/L Troponin I <0.012 <0.012 (0.000-0.034) ng/mL 12/20/22 Range/Units 15:38 AST (17-59) U/L Troponin I <0.012 (0.000-0.034) ng/mL Coagulation 12/20/22 Range/Units 09:39 PT 10.4 (9.0-12.0) sec APTT 27.3 (22.0-30.0) sec CBC 12/20/22 Range/Units 09:39 WBC 12.6 H (3.8-10.6) k/uL RBC 4.19 L (4.30-5.90) m/uL Hgb 13.5 (13.0-17.5) gm/dL Hct 38.6 L (39.0-53.0) % Plt Count 168 (150-450) k/uL Comprehensive Metabolic Panel 12/20/22 Range/Units 09:39 Sodium 138 (137-145) mmol/L Potassium 3.4 L (3.5-5.1) mmol/L Chloride 103 (98-107) mmol/L Carbon Dioxide 24 (22-30) mmol/L BUN 18 (9-20) mg/dL Creatinine 0.83 (0.66-1.25) mg/dL Glucose 118 H (74-99) mg/dL Calcium 9.1 (8.4-10.2) mg/dL AST 20 (17-59) U/L ALT 16 (4-49) U/L Alkaline Phosphatase 89 (38-126) U/L Total Protein 6.7 (6.3-8.2) g/dL Albumin 3.6 (3.5-5.0) g/dL Current Medications Generic Name Dose Route Start Last Admin Trade Name Freq PRN Reason Stop Dose Admin Ascorbic Acid 1,000 mg 12/21/22 09:00 Ascorbic Acid 500 Mg Tab PO DAILY [facility] Aspirin 81 mg 12/21/22 09:00 Aspirin 81 Mg PO DAILY [facility] Cholecalciferol 125 mcg 12/21/22 09:00 Cholecalciferol 125 Mcg (5000 Iu) Tablet PO DAILY [facility] Ceftriaxone Sodium 1 gm/ 50 mls @ 100 mls/hr 12/21/22 09:00 Sodium Chloride IVPB Q24HR [facility] Protocol Azithromycin 500 mg/ Sodium 250 mls @ 250 mls/hr 12/21/22 09:00 Chloride IVPB 12/24/22 09:01 DAILY [facility] Protocol Losartan Potassium 100 mg 12/21/22 09:00 Losartan 50 Mg Tab PO DAILY [facility] Metoprolol Tartrate 25 mg 12/20/22 21:00 12/20/22 19:45 Metoprolol Tartrate 25 Mg Tab PO 25 mg BID [facility] Administration Nitroglycerin 0.4 mg 12/20/22 11:28 Nitroglycerin Sl Tabs 0.4 Mg Tab SUBLINGUAL Q5M PRN Chest Pain Pravastatin Sodium 80 mg 12/20/22 21:00 12/20/22 19:45 Pravastatin Sodium 80 Mg Tab PO 80 mg HS [facility] Administration Tamsulosin HCl 0.4 mg 12/21/22 09:00 Tamsulosin 0.4 Mg Cap.Er.24h PO DAILY [facility] Tramadol HCl 50 mg 12/20/22 15:57 Tramadol 50 Mg Tab PO TID PRN Pain Intake and Output 12/20/22 12/21/22 12/21/22 22:59 06:59 14:59 Other: # Voids 1 2 Weight 80.739 kg 12/20/22 09:39 12/20/22 09:39
[2022-12-21] MEDS ORDERED: LOPERAMIDE 2 MG CAP PO PRN (14:26)
--- NOTE | 2022-12-21 17:57 | CA ---
Transthoracic Echo Report Name: Ezio Posadas Age: 72 Gender: M : 1950 Exam Date: 12/21/2022 10:14 Exam Location: [facility] Ht (in): 70 Wt (lb): 173 Ordering Physician: Tanika Webster Attending/Referring Phys: [id number], Darin Sanitary [employer] Machine Tender Afia Jenkins RDCS Procedure CPT: Indications: LVF Cardiac Hx: Technical Quality: Fair Contrast 1: Total Dose (mL): Contrast 2: Total Dose (mL): MEASUREMENTS (Male / Female) Normal Values 2D ECHO LV Diastolic Diameter PLAX 4.4 cm 4.2 - 5.9 / 3.9 - 5.3 cm LV Systolic Diameter PLAX 1.9 cm IVS Diastolic Thickness 1.2 cm 0.6 - 1.0 / 0.6 - 0.9 cm LVPW Diastolic Thickness 0.9 cm 0.6 - 1.0 / 0.6 - 0.9 cm LV Relative Wall Thickness 0.5 LA Volume 45.6 cm??? 18 - 58 / 22 - 52 cm??? M-MODE Aortic Root Diameter MM 3.7 cm LA Systolic Diameter MM 4.2 cm LA Ao Ratio MM 1.1 AV Cusp Separation MM 2.0 cm DOPPLER AV Peak Velocity 156.3 cm/s AV Peak Gradient 9.8 mmHg AV Mean Velocity 102.8 cm/s AV Mean Gradient 4.9 mmHg AV Velocity Time Integral 28.2 cm LVOT Peak Velocity 119.0 cm/s LVOT Peak Gradient 5.7 mmHg LVOT Velocity Time Integral 23.7 cm TR Peak Velocity 257.4 cm/s TR Peak Gradient 26.5 mmHg Right Ventricular Systolic Press 30.5 mmHg FINDINGS Left Ventricle Mildly increased left ventricular wall thickness. Normal left ventricular systolic function with no obvious regional wall motion abnormalities. Left ventricular ejection fraction is estimated at 55-60 %. Right Ventricle Normal right ventricular size and function. Right ventricular systolic pressure within normal limits. Right Atrium Normal right atrial size. Left Atrium Normal left atrial size. Mitral Valve Structurally normal mitral valve. Mild mitral annular calcification. Trace to mild mitral regurgitation. Aortic Valve Trileaflet aortic valve. No aortic valve stenosis or regurgitation. Tricuspid Valve Structurally normal tricuspid valve. Mild tricuspid regurgitation. Pulmonic Valve Trace pulmonic regurgitation. Pericardium No pericardial effusion. Aorta Normal size aortic root and proximal ascending aorta. CONCLUSIONS Normal LV function Previewed by: Brett Guaman MD Dr. Suresh Tumma MD (Electronically Signed) Final Date: 21 December 2022 17:56
[2022-12-21] MEDS: PRAVASTATIN SODIUM 80 MG TAB PO SCH (19:52)
[2022-12-21] MEDS ORDERED: guaiFENesin SYRUP 100MG/5ML 200 MG/10 ML CUP PO PRN (19:59)
--- NOTE | 2022-12-21 23:08 | PN ---
PROGRESS NOTE DATE OF SERVICE: 12/21/2022 SUBJECTIVE: This 72-year-old gentleman admitted with chest pain, also possibly had bronchopneumonia. No chest pain, no palpitations, no fever. Dobutamine stress echo was found to be normal. OBJECTIVE: VITAL SIGNS: Pulse is 63, blood pressure 140/70, respirations 18. CHEST: Few scattered rhonchi. ABDOMEN: Soft. NERVOUS SYSTEM: No focal. LABORATORY DATA: Reviewed. ASSESSMENT: 1. Chest pain, myocardial infarction ruled out. 2. Possible bronchopneumonia. 3. Possible GERD. 4. Hypertension. 5. Hyperlipidemia. 6. History of myocardial infarction. 7. History of CAD stent. RECOMMENDATIONS AND DISCUSSION: Recommended to continue current management. Continue symptomatic treatment, continue the antibiotics. Closely follow with Pulmonary and Cardiology. Guarded prognosis. Further recommendations to follow. MMODL / IJN: [id number] /
[2022-12-22 07:53] VITALS: BP 105/50; PULSE 65; RESP 14; TEMP 98.1
[2022-12-22] MEDS: AZITHROMYCIN 500 MG in SODIUM CHLORIDE 0.9% 250 ML IVPB SCH (09:04)
[2022-12-22] MEDS: TAMSULOSIN 0.4 MG CAP.ER.24H PO SCH (09:05)
[2022-12-22] MEDS: LOSARTAN 50 MG TAB PO SCH (09:05)
[2022-12-22] MEDS: METOPROLOL TARTRATE 25 MG TAB PO SCH (09:05)
[2022-12-22] MEDS: ASCORBIC ACID 500 MG TAB PO SCH (09:05)
[2022-12-22] MEDS: CHOLECALCIFEROL 125 MCG (5000 IU) TABLET PO SCH (09:05)
[2022-12-22] MEDS: ASPIRIN 81 MG PO SCH (09:05)
--- NOTE | 2022-12-22 09:29 | XR ---
EXAMINATION TYPE: XR chest 2V DATE OF EXAM: 12/22/2022 COMPARISON: 12/20/2022 HISTORY: Follow-up infiltrate TECHNIQUE: Frontal and lateral views of the chest are obtained. FINDINGS: There is a partially consolidative opacity in the left lower lobe consistent with a pneumo guillaume infiltrate in the proper clinical setting. There has been no interval change. There is mild diffuse interstitial prominence which is stable and may be chronic in nature. Heart size normal pulmonary vasculature is not congested. The osseous structures are intact. IMPRESSION: No change in the acute cardiopulmonary disease involving the left lower lobe as described above.
[2022-12-22 09:35] LABS: BUN/Creat Ratio 15.22 Ratio (12.00-20.00); Blood Urea Nitrogen 13.7 mg/dL (9.0-27.0); Calcium 8.9 mg/dL (8.7-10.3); Carbon Dioxide 22.1 mmol/L (21.6-31.8); Chloride 105 mmol/L (96-109); Glucose 110 mg/dL (70-110); Potassium 3.7 mmol/L (3.5-5.5); Sodium 140 mmol/L (135-145)
[2022-12-22 09:49] LABS: Basophils # (A) 0.05 X 10*3/uL (0.00-0.10); Basophils % (A) 0.6 %; Eosinophils # (A) 0.21 X 10*3/uL (0.04-0.35); Eosinophils % (A) 2.6 %; HCT 37.3 % (39.6-50.0); HGB 12.2 d/dL (12.0-15.0); Lymphocytes # (A) 1.15 X 10*3/uL (0.90-5.00); Lymphocytes % (A) 14.1 %; MCHC 32.7 d/dL (32.0-37.0); MCV 91.6 FL (80.0-97.0); Mean Platelet Volume 10.3 FL (9.5-12.2); Monocytes # (A) 0.63 X 10*3/uL (0.20-1.00); Monocytes % (A) 7.7 %; NRBC Per 100 WBC 0 X 10*3/uL (0.00-0.01); Neutrophils # (A) 6.05 X 10*3/uL (1.80-7.70); Neutrophils % (A) 74.5 %; Platelet Count 202 X 10*3/uL (140-440); RBC 4.07 X 10*6/uL (4.40-5.60); RDW 13.7 % (11.5-14.5); WBC 8.13 X 10*3/uL (4.50-10.00)
--- NOTE | 2022-12-22 12:11 | P.PN ---
Subjective Progress Note Date: 12/22/22 This is a 72-year-old male patient of Dr. Cotton with past medical history of coronary artery disease status post stent, hypertension, hyperlipidemia, peripheral vascular disease, abdominal aortic aneurysm followed by Dr. Adorno, family history of premature coronary artery disease. 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 He apparently had a vomiting episode 1. He did not take nitro glycerin at the time. Chest pain was located on the left side. He also has a cough with white sputum production. Pain is nonradiating. He did not tell his about the pain until yesterday and that is why hand up coming to the hospit al. He has a history of smoking cigarettes one pack per day since a teenager. He denies any alcohol abuse and no illicit drug use. 12/22/2022 Patient is followed by pulmonary and started on antibiotics. Dobutamine stress echo showed no evidence of ischemia. Echocardiogram with Doppler study revealed LV systolic function with trace to mild MR and mild TR. Overall the patient is feeling a bit better. He denies further complaints of chest discomfort. His breathing is relatively stable. He has no edema, orthopnea or PND. Denies any palpitations, dizziness or lightheadedness. Objective - Vital Signs Vital signs: Vital Signs Temp 98.1 F 12/22/22 07:00 Pulse 65 12/22/22 07:00 Resp 14 12/22/22 08:00 BP 105/50 12/22/22 07:00 Pulse Ox 95 12/22/22 11:39 FiO2 Intake & Output 12/21/22 12/22/22 12/22/22 18:59 06:59 18:59 Intake Total 118 Balance 118 Intake: Oral 118 Other: Voiding Method Toilet # Voids 3 2 # Bowel Movements 3 3 - Exam HEENT: Head is atraumatic, normocephalic. Pupils equal, round. Sclerae is an icteric. NECK: Supple. No JVD. LUNGS: Slightly diminished, essentially clear to auscultation. No intercostal retractions. HEART: Regular rate and rhythm. 2/6 systolic ejection murmur. ABDOMEN: Soft No tenderness. EXTREMITIES: No pedal edema. No calf tenderness. NEUROLOGICAL: Patient is awake, alert and oriented x3. - Labs CBC & Chem 7: 12/22/22 05:28 12/22/22 05:28 Labs: Abnormal Lab Results - Last 24 Hours (Table) 12/22/22 12/22/22 Range/Units 05:28 05:28 RBC 4.07 L (4.40-5.60) X 10*6/uL Hct 37.3 L (39.6-50.0) % Anion Gap 12.90 H (4.00-12.00) mmol/L Microbiology - Last 24 Hours (Table) 12/20/22 11:45 Blood Culture - Preliminary Blood 12/20/22 11:30 Blood Culture - Preliminary Blood Assessment and Plan Assessment: Chest pain, acute coronary syndrome ruled out Possible pneumonia, left side Hypertension Hyperlipidemia Peripheral vascular disease Abdominal aortic aneurysm followed by Dr. Adorno History of coronary artery disease with previous stent COPD Tobacco use and dependence Plan: From housekeeping/laundry supervisor perspective patient is stable for discharge home. Medications were reviewed and we will continue the same. He will follow-up in the office as an outpatient in about 2 weeks. CRIME SCENE ANALYST note has been reviewed, I agree with a documented findings and plan of care. Patient was seen and examined.
--- NOTE | 2022-12-22 12:41 | P.PN ---
Subjective Progress Note Date: 12/22/22 72-year-old male patient, known history of coronary artery disease with known history of coronary stenting presented emergency because of chest pain. Pain was sharp involving the left upper chest area. He also reports some nausea and emesis. The patient also had the chills. The patient started on Saturday and that is old on its own, and subsequently, he started feeling recurrent chest discomfort without any radiation. The main concern at time of admission was an acute coronary event and for that reason the patient came into the hospital. He has known history of hypertension hyperlipidemia and abdominal aortic aneurysm. In the emergency, the patient was hemodynamically stable. The WBC count was at 12.6 with a hemoglobin 15.5 and a platelet count of 168. Sodium was at 138. BAL was 18 with a creatinine of 0.8. His LFTs were essentially within normal limits normal coagulation profile. His troponin was negative. His EKG showed no acute ischemic changes and he was in sinus rhythm. The chest x-ray showed some patchy consolidation involving the left lower lobe and based on that the pa tient was given a CT angiogram. The CT angiogram showed a left lower lobe pulmonary consolidation and addition to some chronic interstitial changes bilaterally involving the subpleural distribution and some limited upper lobe emphysematous changes. There was no evidence of scattered mediastinal ly mphadenopathy the largest being in the subcarinal area. Based on that, the patient was hospitalized. He was started on accommodation of Rocephin and Zithromax. He is currently on room air oxygen. Hemodynamically stable. No evidence of any pulmonary embolism based on the computed tomography scan of the chest. He is known to have an infrarenal abdominal aortic aneurysm and his proximal ascending aorta was measuring around 3.9 cm based on a CT angiogram from 07/12/2021. The infrarenal abdominal aortic aneurysm was measuring 4.7 cm in size and there was large amount of luminal plaquing. On today's evaluation of 12/21/2022, the patient is resting comfortably in bed. He has no significant chest pain today. He has some headache. He has also weight loss in the order of 20 pounds. This has been going on since last year. The told me that there was a CT angiogram of the thoracic aorta and abdominal wart the done back in July 2021. I reviewed the images again and based on my evaluation, there was some partial atelectasis of the left lower lobe subsegment. However, over the past 1-1/2 years, it seems that that has been significant progression. There is also evidence of ascending lymphadenopathy. I'm becoming more suspicious that there may be potentially an underlying malignancy. For now, the patient is going to be treated with antibiotics. I will plan to do a bronchoscopy after completing a 7-10 day course of antibiotics. If they abnormalities persist, obviously the patient will need a bronchoscopy. Meanwhile, the patient is going to have a dobutamine cardiac stress test today. On 12/22/2022, clinically unchanged and the patient denies having any change in his overall respiratory status. No chest pain. The patient remains on Rocephin and Zithromax. Chest x-ray findings of essentially unchanged. The blood cultures are negative. White cell count of 8.1. Sodium is at 140 with a potassium level of 3.7. Pro-calcitonin level is at 0.1. Creatinine 0.9. Objective - Vital Signs Vital signs: Vital Signs Temp 98.1 F 12/22/22 07:00 Pulse 65 12/22/22 07:00 Resp 14 12/22/22 08:00 BP 105/50 12/22/22 07:00 Pulse Ox 95 12/22/22 11:39 FiO2 Intake & Output 12/21/22 12/22/22 12/22/22 18:59 06:59 18:59 Intake Total 118 Balance 118 Intake: Oral 118 Other: Voiding Method Toilet # Voids 3 2 # Bowel Movements 3 3 - Labs CBC & Chem 7: 12/22/22 05:28 12/22/22 05:28 Labs: Abnormal Lab Results - Last 24 Hours (Table) 12/22/22 12/22/22 Range/Units 05:28 05:28 RBC 4.07 L (4.40-5.60) X 10*6/uL Hct 37.3 L (39.6-50.0) % Anion Gap 12.90 H (4.00-12.00) mmol/L Microbiology - Last 24 Hours (Table) 12/20/22 11:45 Blood Culture - Preliminary Blood 12/20/22 11:30 Blood Culture - Preliminary Blood Assessment and Plan Plan: Left lung consolidation, suspicious for pneumonia with secondary left-sided chest pain. No other the CAT scan of the chest also showed evidence of mediastinal lymphadenopathy largest the subcarinal area and some background COPD with upper lobe predominance and some interstitial changes in the lung bases. No evidence of any pulmonary embolism. I reviewed the CAT scan of the chest and I compared it to the earlier CAT scan that was done back in July 2021. There was some partial subsegmental atelectasis in the left lung and it seems that his abnormalities in the left lung has essentially progressed. Based on that, the patient may need a closer evaluation. Coronary artery disease with previous coronary stenting. EKG is normal. Troponins are not elevated. COPD with upper lobe predominance Chronic smoker Mild leukocytosis Hypertension Hyperlipidemia BPH Monitor abdominal aortic aneurysm measuring 4.7 cm in size, infrarenal and the patient is a 3.9 cm ascending aortic aneurysm. Plan The patient can be discharged home on oral antibiotics Chest x-ray findings of essentially unchanged Obtain pro-calcitonin level mildly elevated, no clear indication of underlying infection The patient can be discharged home today I had a lengthy discussion with the at the bedside. I think is reasonable to complete a 7-10 day course of antibiotics and repeat the chest x-ray and if abnormalities persist, the patient will need a follow-up bronchoscopy for airway inspection and possible biopsies. This will be done within the next 2-3 weeks if there is no clear recovery. I would also suggest biopsying the mediastinal lymph nodes if the bronchoscopy is to be done. He will need also an outpatient PET CT. Cardiac stress test was normal Echo was normal Continue antibiotics We'll continue to follow
--- NOTE | 2022-12-22 23:26 | DS ---
DISCHARGE SUMMARY FINAL DIAGNOSES: 1. Chest pain, myocardial infarction ruled out. 2. Possible bilateral bronchopneumonia. 3. GERD. 4. Hypertension. 5. Hyperlipidemia. 6. History of myocardial infarction. 7. History of CAD stent. DISCHARGE DISPOSITION: The patient will be discharged home in stable condition and guarded prognosis. HISTORY OF PRESENT ILLNESS: This is a 72-year-old gentleman admitted with multiple medical problems the patient empirically with pneumonia. The patient improved significantly. Dr. Riley saw the patient, recommended outpatient followup. Dr. Riley is planning bronchoscopy and further evaluation as an outpatient. Cardiology saw the patient, cleared the patient for discharge. PHYSICAL EXAMINATION: VITAL SIGNS: Stable. CARDIOVASCULAR: S1, S2. ABDOMEN: Soft. NERVOUS SYSTEM: No focal deficits. DISCHARGE ADVICE AND MEDICATIONS: Please refer to discharge recommendation medications for list of medications, continue the home medications, 1. Zithromax 500 mg daily for 3 days. 2. Ceftin 500 mg daily for 3 days. Follow up with Dr. Riley, follow up with Cardiology, and follow with Dr. Haile as recommended. MMODL / IJN: [id number] / MTDD
== END 2022-12-22 12:47 | disposition home or self-care (01) | DRG 194 ==
LOC: EC 09:06 → 6NMEDSUR 11:29 → OBSVTOIN 12-21 14:21 → UNDODISOB 12-22 12:47
PROVIDERS: ADMIT Hospitalist; ATTEND Hospitalist
DX: J18.9 Pneumonia, unspecified organism (principal); I25.110 Atherosclerotic heart disease of native coronary artery with unstable angina pectoris; J44.0 Chronic obstructive pulmonary disease with (acute) lower respiratory infection; I71.43 Infrarenal abdominal aortic aneurysm, without rupture; I10 Essential (primary) hypertension; F17.200 Nicotine dependence, unspecified, uncomplicated; E78.5 Hyperlipidemia, unspecified; I73.9 Peripheral vascular disease, unspecified; N40.0 Benign prostatic hyperplasia without lower urinary tract symptoms; K21.9 Gastro-esophageal reflux disease without esophagitis; I25.2 Old myocardial infarction; Z79.82 Long term (current) use of aspirin; Z79.899 Other long term (current) drug therapy; Z82.49 Family history of ischemic heart disease and other diseases of the circulatory system; Z86.79 Personal history of other diseases of the circulatory system; Z95.5 Presence of coronary angioplasty implant and graft
CPT/HCPCS: 36415; 71046; 71275; 76705; 80048; 80053; 80061; 83735; 84145; 84484; 85025; 85379; 85610; 85730; 87040; 93005; 93306; 93351; 94760; 96365; 96375; 99285

== ENCOUNTER → 2023-01-26 | Outpatient (CLI) | payer OTHER, MEDICARE ==
--- NOTE | 2023-01-29 15:15 | PE ---
EXAMINATION TYPE: PET CT fusion skull to thigh DATE OF EXAM: 01/26/2023 COMPARISON: CT abdomen and pelvis Prior PET/CT: None at this location HISTORY: Lymphadenopathy TECHNIQUE: Following the intravenous administration of 10.34 mCi of F-18 FDG, whole body images are performed from the skull base to the midthigh. Images are reviewed on the computer in the coronal, a xial, and sagittal planes. Reconstructed rotating images are created on independent workstation and reviewed on the computer. A localization and attenuation correction CT is performed in conjunction with the PET scan. DLP: 486.33 mGycm SCAN: Initial Blood glucose: 102 mg/dL Average Mediastinum SUV: 1.61 Average Liver SUV: 1.92 FINDINGS: NECK: There is a focus of radiotracer within the left parotid gland with intense activity, image 22, SUV 5.3 suspicious for neoplasm. There is intense activity more inferior left, image 29 SUV 5.06. In tense activity is within the right parotid region image 32 SUV 6.55. There is intense activity at the apex of the jaw. This could be periodontal disease. There is an SUV of 4.62. Metastatic disease is not excluded. There is intense activity along the anterior left lateral aspect of the vocal cords, image 50. This h as an SUV of 4.21. Direct visualization is recommended. THORAX: No abnormal uptake ABDOMEN: No abnormal uptake PELVIS: No abnormal uptake OSSEOUS STRUCTURES: No abnormal uptake LOCALIZATION CT: There is increased density within the left parotid gland likely is the suspected met astatic lymph node. This measures 1.1 cm. Increased activity is also present within the right parotid region with hyperdense area measuring 1.3 cm likely is an additional lymph node. 1.4 cm lymph node i s at the angle of the jaw. There is some asymmetry of the anterior left vocal cord level. Direct visu alization would be of benefit at this level. Scattered shotty lymphadenopathy within the pretracheal space. Left adrenal gland is thickened at 1.7 cm. Aneurysmal dilatation of the abdominal aorta is pre sent measuring 5.0 cm. Series 3 image 184, increased from 07-12-2021 of 4.5 cm. There is aneurysmal dil atation of the proximal left common iliac vessel at 2.5 cm. Some external iliac artery prominence est imated at 2.2 cm is present. COMPARISON: Significant change is not evident. IMPRESSION: 1. Multiple bilateral parotid and cervical lymph nodes with increased uptake suggestive for neoplasm. Consider lymphoma within the differential. 2. There is some asymmetry of the vocal cord level with increased uptake. Direct visualization of the anterior left vocal cord is recommended. 3. Abdominal aortic aneurysm with a AP diameter 5.0 cm.
== END | disposition home or self-care (01) ==
LOC: RADPETMAIN 07:35
PROVIDERS: ATTEND Internal Medicine Hematology & Oncology
DX: R59.0 Localized enlarged lymph nodes (principal); I71.40 Abdominal aortic aneurysm, without rupture, unspecified
CPT/HCPCS: 78815; A9552

== ENCOUNTER 2024-04-27 10:29 | Inpatient (IN) | payer OTHER, MEDICARE ==
--- NOTE | 2024-04-27 10:57 | ED ---
Chest Pain HPI - General Chief Complaint: Chest Pain Stated Complaint: CHEST PAIN Time Seen by Provider: 04/27/24 10:50 Source: patient, family, RN notes reviewed Mode of arrival: ambulatory Limitations: no limitations - History of Present Illness Initial Comments: This is a 73-year-old male with a history of AAA, hypertension, previous OR, peripheral vascular disease, COPD and current smoker, presenting to the emergency department with for chief complaint of intermittent chest pressure over the past 6 days. It is reported that patient had a exertional episode about 6 days ago running in airport to catch a flight when he experienced chest pressure. States that has been intermittent during the last 6 days. He denies shortness of breath, heart palpitations, dizziness, lightheadedness, associated nausea or diaphoresis, peripheral edema. Denies worsening productive cough, fevers, chills. patient was given aspirin and nitro en route to the hospital and states that that has helped to alleviate his symptoms. Patient has seen cardiology approximately 2 months ago and has follow-up with vascular specialist over the summer where AAA screening was completed. MD Complaint: chest pain -: days(s) Onset: during rest, during exertion Pain Location: substernal Pain Radiation: none Quality: heaviness Consistency: intermittent Improves With: nitroglycerin Treatments Prior to Arrival: aspirin, nitroglycerin - Related Data Home Medications Medication Instructions Recorded Confirmed Aspirin EC [Ecotrin Low Dose] 81 mg PO DAILY 12/20/22 04/27/24 Losartan Potassium 100 mg PO DAILY 12/20/22 04/27/24 Metoprolol Tartrate [Lopressor] 25 mg PO BID 12/20/22 04/27/24 Nitroglycerin Sl Tabs [Nitrostat] 0.4 mg SUBLINGUAL Q5M PRN 12/20/22 04/27/24 Pantoprazole [Protonix] 40 mg PO DAILY 12/20/22 04/27/24 Pravastatin Sodium [Pravachol] 80 mg PO HS 12/20/22 04/27/24 Tamsulosin [Flomax] 0.4 mg PO DAILY 12/20/22 04/27/24 traMADol HCL 50 mg PO TID PRN 12/20/22 04/27/24 Allergies Allergy/AdvReac Type Severity Reaction Status Date / Time No Known Allergies Allergy Verified 04/27/24 12:16 Review of Systems ROS Statement: Those systems with pertinent positive or pertinent negative responses have been documented in the HPI. ROS Other: All systems not noted in ROS Statement are negative. Past Medical History Past Medical History: Coronary Artery Disease (CAD), GERD/Reflux, Hyperlipidemia, Hypertension, Myocardial Infarction (OR), Prostate Disorder Additional Past Medical History / Comment(s): AAA Last Myocardial Infarction Date:: 2011 History of Any Multi-Drug Resistant Organisms: None Reported Past Surgical History: Heart Catheterization With Stent, Hernia Repair Past Anesthesia/Blood Transfusion Reactions: No Reported Reaction Date of Last Stent Placement:: 2011 Past Psychological History: No Psychological Hx Reported Smoking Status: Current every day smoker Past Alcohol Use History: None Reported Past Drug Use History: None Reported General Exam Limitations: no limitations General appearance: alert, in no apparent distress Eye exam: Present: normal appearance, PERRL, EOMI. Absent: scleral icterus, conjunctival injection, periorbital swelling ENT exam: Present: normal exam, mucous membranes moist Neck exam: Present: normal inspection. Absent: tenderness, meningismus, lymphadenopathy Respiratory exam: Present: normal lung sounds bilaterally. Absent: respiratory distress, wheezes, rales, rhonchi, stridor Cardiovascular Exam: Present: regular rate, normal rhythm, bradycardia, normal heart sounds. Absent: systolic murmur, diastolic murmur, rubs, gallop, clicks GI/Abdominal exam: Present: soft, normal bowel sounds, hernia (midline). Absent: distended, tenderness, guarding, rebound, rigid Extremities exam: Present: normal inspection, full ROM, normal capillary refill. Absent: tenderness, pedal edema, joint swelling, calf tenderness Back exam: Present: normal inspection Neurological exam: Present: alert, oriented X3, CN II-XII intact Skin exam: Present: warm, dry, intact, normal color. Absent: rash Course Vital Signs 04/27/24 04/27/24 04/27/24 10:30 12:30 14:00 Temperature 97.4 F L Pulse Rate 51 L 45 L 51 L Respiratory 20 18 20 Rate Blood Pressure 90/47 118/74 122/76 O2 Sat by Pulse 98 96 95 Oximetry 04/27/24 15:00 Temperature Pulse Rate 53 L Respiratory 18 Rate Blood Pressure 131/78 O2 Sat by Pulse 95 Oximetry Chest Pain MDM - MDM Was pt. sent in by a medical professional or institution (, PA, [facility], urgent care, hospital, or [facility]...) When possible be specific @ -No Did you speak to anyone other than the patient for history (EMS, parent, family, police, friend...)? What history was obtained from this source @ -Spoke to the patient's at bedside states that patient follows with Dr. Cotton for cargiology Did you review nursing and triage notes (agree or disagree)? Why? @ -I reviewed and agree with nursing and triage notes Were old charts reviewed (outside hosp., previous admission, EMS record, old EKG, old radiological studies, urgent care reports/EKG's, [facility] records)? Report findings @ -Reviewed patient's previous emergency department visit notes he was admitted for cardiac rule out chest pain where stress testing was completed. Differential Diagnosis (chest pain, altered mental status, abdominal pain women, abdominal pain men, vaginal bleeding, weakness, fever, dyspnea, syncope, headache, dizziness, GI bleed, back pain, seizure, CVA, palpatations, mental health, musculoskeletal)? @ -Differential Chest Pain: Stable Angina, Unstable Angina, STEMI, NSTEMI Aortic Dissection, Pneumothorax, Musculoskeletal, Esophageal Spasm GERD, Cholecystitis, Pancreatitis, Zoster, this is not meant to be an all-inclusive list. EKG interpreted by me (3pts min.). @ -Completed at 1101 sinus bradycardia with ventricular rate of 42, LA interval 164, QRS 88, QTc 491. Patient is noted to have T wave inversions precordial leads V2 through V6. Repeat EKG at 1142 sinus bradycardia with ventricular rate 41, LA interval 169, QRS 85, QTc 436. X-rays interpreted by me (1pt min.). @ -Chest x-ray reveals no acute cardiopulmonary process CT interpreted by me (1pt min.). 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 min.). @ -None done What testing was considered but not performed or refused? (CT, X-rays, U/S, labs)? Why? @ -None What meds were considered but not given or refused? Why? @ -None Did you discuss the management of the patient with other professionals (professionals i.e. , PA, [facility], lab, RT, psych nurse, social media executive, student financial aid manager, teacher, president and chief commercial officer, trimming caser)? Give summary @ -With sound internal medicine physician in regard to admission who has accepted with cardiology on consult. Was smoking cessation discussed for >3mins.? @ -No Was critical care preformed (if so, how long)? @ -No Were there social determinants of health that impacted care today? How? (Homelessness, low income, unemployed, alcoholism, drug addiction, transportation, low edu. Level, literacy, decrease access to med. care, prison, rehab)? @ -No Was there de-escalation of care discussed even if they declined (Discuss DNR or withdrawal of care, Hospice)? DNR status @ -No What co-morbidities impacted this encounter? (DM, HTN, Smoking, COPD, CAD, Cancer, CVA, ARF, Chemo, Hep., AIDS, mental health diagnosis, sleep apnea, morbid obesity)? @ -HTN, smoking, COPD, CAD Was patient admitted / discharged? Hospital course, mention meds given and route, prescriptions, significant lab abnormalities, going to OR and other pertinent info. @ -Admitted. 73-year-old male with chest pain. on my initial evaluation patient noted to be bradycardic with heart rate of 51 and hypotensive with a blood pressure of 90/47. Send with patient he is currently denying chest pain states that nitro has resolved his symptoms and states that his mostly exertional. Patient provided with liter fluid bolus and will undergo cardiac workup. Chest x-ray unremarkable. Laboratory studies remarkable for elevation troponin of 0.832. BNP not elevated at 1040. Patient has history of AAA and will undergo CT angiography of the chest, abdomen, and pelvis to rule out potential bleed. on reevaluation, patient is denying chest pain, shortness of breath or difficulty breathing. Blood pressure has improved through a liter fluid bolus with systolics in 110s and diastolics in 60s. CT unremarkable for acute process. Patient is started on low intensity heparin and will be admitted to internal medicine with cardiology on consult for further evaluation of ACS and NSTEMI. Discussed with Dr. Ortega Undiagnosed new problem with uncertain prognosis? @ -No Drug Therapy requiring intensive monitoring for toxicity (Heparin, Nitro, Insul in, Cardizem)? @ -No Were any procedures done? @ -No Diagnosis/symptom? @ -NSTEMI, ACS Acute, or Chronic, or Acute on Chronic? @ -acute Uncomplicated (without systemic symptoms) or Complicated (systemic symptoms)? @ -complicated Side effects of treatment? @ -No Exacerbation, Progression, or Severe Exacerbation? @ -No Poses a threat to life or bodily function? How? (Chest pain, USA, OR, pneumonia, PE, COPD, DKA, ARF, appy, cholecystitis, CVA, Diverticulitis, Homicidal, Suicidal, threat to staff... and all critical care pts) @ -yes Disposition Clinical Impression: ACS (acute coronary syndrome), NSTEMI (non-ST elevated myocardial infarction) Disposition: ADMITTED IP TO THIS [facility] Condition: Serious Decision to Admit Reason: Admit from EC Decision Date: 04/27/24 Decision Time: 14:08
[2024-04-27] MEDS: SODIUM CHLORIDE 0.9% 1,000 ML IV STA (11:02)
[2024-04-27 11:10] LABS: Basophils % (A) 1 %; Eosinophils # (A) 0.2 k/uL (0-0.7); Eosinophils % (A) 3 %; HGB 14.9 gm/dL (13.0-17.5); Lymphocytes # (A) 1.7 k/uL (1.0-4.8); Lymphocytes % (A) 23 %; MCH 31.1 pg (25.0-35.0); MCHC 33.1 g/dL (31.0-37.0); Mean Platelet Volume 8.3; Monocytes # (A) 0.5 k/uL (0-1.0); Monocytes % (A) 6 %; Neutrophils # (A) 4.6 k/uL (1.3-7.7); Neutrophils % (A) 65 %; Platelet Count 167 k/uL (150-450); RBC 4.79 m/uL (4.30-5.90); RDW 13.4 % (11.5-15.5); WBC 7.1 k/uL (3.8-10.6)
[2024-04-27 11:19] LABS: INR 0.9 (<1.2); Prothrombin Time 10.3 sec (10.0-12.5)
[2024-04-27 11:21] LABS: ALT 27 U/L (4-49); AST 38 U/L (17-59); African American GFR (CKD) 85 (>60 ml/min/1.73 sqM); Albumin 3.8 g/dL (3.5-5.0); Alkaline Phosphatase 85 U/L (38-126); Anion Gap 3 mmol/L; Blood Urea Nitrogen 21 mg/dL (9-20); Calcium 8.9 mg/dL (8.4-10.2); Carbon Dioxide 28 mmol/L (22-30); Chloride 109 mmol/L (98-107); Glucose 103 mg/dL (74-99); Lipase 70 U/L (23-300); Non-African American GFR(CKD) 74 (>60 ml/min/1.73 sqM); Potassium 4.2 mmol/L (3.5-5.1); Sodium 140 mmol/L (137-145); Total Bilirubin 0.8 mg/dL (0.2-1.3); Total Protein 6.6 g/dL (6.3-8.2)
--- NOTE | 2024-04-27 11:21 | XR ---
EXAMINATION TYPE: XR chest 2V DATE OF EXAM: 04/27/2024 CLINICAL HISTORY: Chest pain TECHNIQUE: Frontal and lateral views of the chest are obtained. COMPARISON: None FINDINGS: There is no focal air space opacity, pleural effusion, or pneumothorax seen. Upper inflat ion compatible with COPD. The cardiac silhouette size is within normal limits. The osseous structur es are intact. IMPRESSION: No acute cardiopulmonary process. [facility], , 04/27/2024 11:19 AM
[2024-04-27 11:31] LABS: NT-Pro-B-Type Natriuretic Pept 1040 pg/mL
--- NOTE | 2024-04-27 13:09 | CT ---
EXAMINATION TYPE: CT angio thor/abd pel aorta CT DLP: 1584.3 mGycm, Automated exposure control for dose reduction was used. DATE OF EXAM: 04/27/2024 12:41 PM COMPARISON: PET CT 01/26/2023, CTA chest 12/20/2022, CTA thoracolumbar abdominal pelvis aorta 07/12/21. CLINICAL INDICATION:Male, 73 years old with history of eval for aortic injury/dissection; PHH, CHEST PAIN X6 DAYS, H/O AAA TECHNIQUE: Dissection protocol: Multiple axial CT images of the chest, abdomen, and pelvis were obtai xiomara prior and to the administration of IV contrast. 3-D reformats and maximum intensity projection fo rmat were performed on a separate workstation. Then the abdomen was scanned after administration of 1 00 cc of Isovue 370 IV contrast. FINDINGS: ARTERIAL VASCULATURE: The thoracic aorta is normal in course and caliber. The ascending thoracic aort a measures up to 3.8 cm. Mild to moderate atherosclerotic calcification of the aorta and its branches . There is no evidence of aortic dissection, aneurysm or acute aortic injury. Great arch vessels ang nt. Moderate stenosis at the origin of the left common carotid artery secondary to noncalcified plaqu e. Infrarenal abdominal aortic fusiform aneurysm measuring 5.3 x 4.7 cm, previously measured 5.0 x 4. 5 cm on PET/CT. There is significant mural thrombus identified. Prominent lumbar artery identified. 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 The celiac axis is widel y patent. The SMA is patent with moderate stenosis involving its proximal portion secondary to calcif ied and noncalcified plaque with poststenotic dilatation. The bilateral single renal arteries are pat ent with moderate stenosis at the origin of the right renal artery. The FIONA is patent. There is redem onstration of 4 cm long segment occlusion of the right common iliac artery. Reconstitution at the com mon iliac artery bifurcation. Stable mild aneurysmal dilatation of the left internal iliac artery josephine suring up to 1.4 cm. Both internal iliac arteries and external iliac arteries are patent. PULMONARY ARTERIAL VASCULATURE: Normal caliber. No evidence of filling defect to suggest pulmonary em bolus. Lungs/pleura: Centrilobular and paraseptal emphysematous changes. Scattered diffuse peripheral reticu lar opacities are redemonstrated consistent with partial fibrotic changes. No new focal consolidation , pneumothorax, or pleural effusion. Heart: Within normal limits. No pericardial effusion. Mild coronary arterial calcifications. Mediastinum: Stable enlarged subcarinal lymph node measuring 1.2 cm short axis. Additional nonenlarge d bilateral hilar and mediastinal lymph nodes redemonstrated. Lower Neck: No significant findings. Abdomen: Liver: Patchy enhancement identified within the inferior right peripheral hepatic lobe. May represent a transient hepatic attenuation difference. Gallbladder and Bile ducts: Unremarkable. Pancreas: Unremarkable. Spleen: Unremarkable. Adrenal glands: Right adrenal glands unremarkable. 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 Kidneys and Ureters: No hydronephrosis. The kidneys enhance symmetrically. Multiple bilateral renal c ysts with largest emanating from the inferior pole of the right kidney measuring up to 10.7 cm. Stomach and Bowel: Distal colonic diverticulosis without evidence for acute diverticulitis. The appen mavis is within normal limits. No evidence of bowel obstruction. Peritoneum: No evidence of pneumoperitoneum, free fluid, or adenopathy. Bladder: Underdistended with perivesical fat stranding. Reproductive: Enlarged prostate gland measuring 5.5 cm in transverse dimension. Abdominal wall/soft tissues: Unremarkable. Musculoskeletal: The osseous structures appear intact. Mild multilevel degenerative disc disease of t he visualized spine. Similar sclerosis of the right ilium abutting the SI joint. IMPRESSION: 1. Marginal increase in size of infrarenal abdominal aortic aneurysm measuring up to 5.3 cm. No evid ence for intramural hematoma or dissection of the aorta. Moderate atherosclerotic disease of aorta an d its branches. 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 2. Similar perivesicular fat stranding which could represent cystitis or chronic bladder outlet obst ruction changes from prostatomegaly. Correlate with urinalysis. 3. Colonic diverticulosis without evidence for acute diverticulitis. 4. Stable emphysematous and pulmonary fibrotic changes. 5. Stable mildly prominent enlarged mediastinal and hilar lymph nodes. [facility], , 04/27/2024 1:07 PM
[2024-04-27] MEDS ORDERED: HEPARIN SODIUM 1,000 UN/ML (10ML VL) IV PRN (13:13)
[2024-04-27] MEDS: HEPARIN SOD,PORK IN 0.45% NACL 25,000 UNIT in 0.45% NACL 1 250ML.BAG IV SCH (13:32)
[2024-04-27] MEDS: HEPARIN SODIUM 1,000 UN/ML (10ML VL) IV ONE (13:33)
[2024-04-27] MEDS ORDERED: MORPHINE SULFATE 4 MG/ML SYRINGE IV PRN (14:08)
--- NOTE | 2024-04-27 17:00 | CA ---
Transthoracic Echo Report Name: Ezio Posadas Age: 73 Gender: M : 1950 Exam Date: 04/27/2024 15:13 Exam Location: [facility] Ht (in): 68 Wt (lb): 177 Ordering Physician: Randi Mejia Attending/Referring Phys: Social Media Content Manager Cate Mendoza RDCS Procedure CPT: Indications: nstemi Cardiac Hx: Technical Quality: Fair Contrast 1: Definity Total Dose (mL): 2 Contrast 2: Total Dose (mL): MEASUREMENTS (Male / Female) Normal Values 2D ECHO LV Diastolic Diameter PLAX 5.1 cm 4.2 - 5.9 / 3.9 - 5.3 cm LV Systolic Diameter PLAX 2.4 cm IVS Diastolic Thickness 1.2 cm 0.6 - 1.0 / 0.6 - 0.9 cm LVPW Diastolic Thickness 1.2 cm 0.6 - 1.0 / 0.6 - 0.9 cm LV Relative Wall Thickness 0.5 RV Internal Dim ED PLAX 2.2 cm LA Systolic Diameter LX 4.3 cm 3.0 - 4.0 / 2.7 - 3.8 cm LV Diastolic Volume MOD BP 55.3 cm??? 67 - 155 / 56 - 104 cm??? LV Systolic Volume MOD BP 23.5 cm??? - 58 / 19 - 49 cm??? LV Ejection Fraction MOD BP 57.5 % >= 55 % LV Cardiac Index MOD BP 754.9 cm???/min???m??? LV Diastolic Volume MOD 4C 60.4 cm??? LV Systolic Volume MOD 4C 23.7 cm??? LV Ejection Fraction MOD 4C 60.7 % LV Cardiac Index MOD 4C 871.0 cm???/min???m??? LV Diastolic Length 4C 6.9 cm LV Systolic Length 4C 5.6 cm LV Diastolic Volume MOD 2C 45.5 cm??? LV Systolic Volume MOD 2C 22.6 cm??? LV Ejection Fraction MOD 2C 50.4 % LV Cardiac Index MOD 2C 546.0 cm???/min???m??? LV Diastolic Length 2C 6.2 cm LV Systolic Length 2C 5.4 cm LA Volume 54.8 cm??? 18 - 58 / 22 - 52 cm??? LA Volume Index 27.7 cm???/m??? 16 - 28 cm???/m??? M-MODE Aortic Root Diameter MM 3.8 cm LA Systolic Diameter MM 3.4 cm LA Ao Ratio MM 0.9 AV Cusp Separation MM 1.6 cm DOPPLER MV Area PHT 2.7 cm??? Mitral E Point Velocity 84.1 cm/s Mitral A Point Velocity 103.3 cm/s Mitral E to A Ratio 0.8 MV Deceleration Time 280.8 ms TR Peak Velocity 239.5 cm/s TR Peak Gradient 23.0 mmHg FINDINGS Left Ventricle Left ventricular ejection fraction is estimated at 55-60 %. Mildly increased septal wall thicknessnormal left ventricular wall motion. No obvious regional wall motion abnormalities. Left ventricular cavity size normal. . Right Ventricle Mild right ventricular dilatation. Right ventricular systolic pressure within normal limits. Right Atrium Moderate right atrial dilatation. Left Atrium Moderate left atrial dilatation. Mitral Valve Structurally normal mitral valve. Mild mitral regurgitation. No mitral stenosis. Aortic Valve Trileaflet aortic valve. No aortic valve stenosis or regurgitation. Tricuspid Valve Structurally normal tricuspid valve. Moderate tricuspid regurgitation. No tricuspid stenosis. Pulmonic Valve Structurally normal pulmonic valve. Trace pulmonic regurgitation. No pulmonic stenosis. Pericardium No pericardial or pleural effusion. Aorta Mild aortic dilatation at the level of the sinuses of valsalva (root). CONCLUSIONS LVEF 55 to 60% No obvious regional wall motion abnormality Mild concentric LVH Moderate biatrial dilatation Mild mitral regurgitation, moderate tricuspid regurgitation RVSP 28 mmHg Aortic root at upper limit of normal measuring at 3.8 cm Previewed by: Dr Shoaib Bella (Electronically Signed) Final Date: 27 April 2024 16:59
[2024-04-27] MEDS ORDERED: traMADol 50 MG TAB PO PRN (17:42)
--- NOTE | 2024-04-27 19:20 | P.HPIM ---
History of Present Illness H&P Date: 04/27/24 Patient is a 73-year-old male with hypertension, hyperlipidemia, abdominal aortic aneurysm, CAD with 2 stent placements who is here for chest pressure. He reported 6 days prior he traveled to [place] and during that time experience chest pressure and an intensity of 7 out of 10 nonradiating while running in the airport and was relieved with rest. Since that time, patient has been experiencing chest pressure with the same intensity intermittently, still nonradiating and would be relieved by rest. After returning from travel, the chest pressure was still not relieved which caused him to seek care. He denies lightheadedness, dizziness, nausea, vomiting, sweats, changes in vision, facial asymmetry, shortness of breath, leg tenderness or abdominal pain. In the ER, chest x-ray shows widening mediastinum and congestion. EKG showed sinus bradycardia with T wave inversions in leads V2 to 6. Thoracic aorta CT shows infrarenal aortic aneurysm at 5.3 cm (initially 4.[address] in y 2021). Troponin at 0.832 BNP 1040. Glucose 103, chloride 109, WBC 7.1 hemoglobin 14.9 platelet 167,000 On admission, patient was afebrile 97.4 pulse rate 51 she is decreased respirations 20 blood pressure decreased at 90/47 O2 saturation 98% at room air Review of systems: Pertinent positives and negatives as discussed in HPI, a complete review of systems was performed and all other systems are negative. Social history: Tobacco: Current smoker smokes 1 pack/day for 50 years Alcohol: Denies alcohol use Recreational drugs: Denies illicit drug use Physical examination: Vital signs reviewed General: non toxic, no distress Derm: no unusual rashes/lesions, warm Head: atraumatic, normocephalic, symmetric Eyes: EOMI, anicteric sclera, pupils equal round reactive to light ENT: Nose and ears atraumatic Neck: No cervical lymphadenopathy, trachea midline, supple Mouth: no lip lesion, mucus membranes moist Cardiovascular: S1S2 reg, no murmur Lungs: CTA bilateral, no rhonchi, no rales, no accessory muscle use Abdominal: soft, nondistended, nontender to palpation, no guarding Ext: muscle strength 5 out of 5 in all 4 extremities grossly, no gross muscle atrophy, no contractures, positive dorsalis pedis pulse bilateral, no extremity edema Neuro: CN II-XI grossly intact, no gross focal neuro deficits Psych: Alert and oriented x 3, appropriate affect and mood Assessment/Plan: 77-year-old male came in for chest pressure. EKG showed sinus bradycardia with T wave inversions in 1 leads V2 to 6 and troponins were elevated at 0.832. Patient was assessed as an NSTEMI type I #. NSTEMI type I Troponins elevated at 0.832. BNP at 1040. Trend troponins every 6 hours Lipid profile, A1c, TSH CBC, BMP in the a.m. EKG as needed Morphine IV for pain Continue IV heparin Lipitor 80 mg p.o. daily Aspirin 81 mg p.o. daily Decrease metoprolol to tartrate to 12.5 mg p.o. twice daily. Hold for heart rate less than 60 Cardiology following #. Infrarenal aortic aneurysm, stable Thoracic CT shows infrarenal aortic aneurysm measuring at 5.3 cm which has increased in size from prior CT in July 2021 Consider consult to vascular surgery Chronic Conditions: #. Hypertension #. Hyperlipidemia #. GERD #. Chronic back pain Hold losartan 100 mg Hold Nitrostat sublingual Hold pravastatin F: Encourage oral intake E: None N: Heart healthy diet A: Encourage self ambulation DVT ppx: IV heparin GI ppx: Protonix 40 mg Dispo: The patient is admitted with an anticipated greater than than 2 midnight stay for evaluation of NSTEMI Discussed with: Patient and patient's family Anticipated discharge place: Home Maddy Whalen MD PGY-1 IM Dictation was produced using Mire[employer] dictation software. please excuse any grammatical, word or spelling errors. I saw and evaluated the patient during the garcía and critical portions of this encounter, and discussed the case in detail with the resident author of this note, I agree with the Assessment and Plan, and my changes, if any, are highlighted in blue. Past Medical History Past Medical History: Coronary Artery Disease (CAD), GERD/Reflux, Hyperlipidemia, Hypertension, Myocardial Infarction ([place]), Prostate Disorder Additional Past Medical History / Comment(s): AAA Last Myocardial Infarction Date:: 2011 History of Any Multi-Drug Resistant Organisms: None Reported Past Surgical History: Heart Catheterization With Stent, Hernia Repair Past Anesthesia/Blood Transfusion Reactions: No Reported Reaction Date of Last Stent Placement:: 2011 Past Psychological History: No Psychological Hx Reported Smoking Status: Current every day smoker Past Alcohol Use History: None Reported Past Drug Use History: None Reported - Past Family History Mother Family Medical History: Cancer, CVA/TIA, Hyperlipidemia, Hypertension Additional Family Medical History / Comment(s): breast CA Medications and Allergies Home Medications Medication Instructions Recorded Confirmed Type Aspirin EC [Ecotrin Low Dose] 81 mg PO DAILY 12/20/22 04/27/24 History Losartan Potassium 100 mg PO DAILY 12/20/22 04/27/24 History Metoprolol Tartrate [Lopressor] 25 mg PO BID 12/20/22 04/27/24 History Nitroglycerin Sl Tabs [Nitrostat] 0.4 mg SUBLINGUAL Q5M PRN 12/20/22 04/27/24 History Pantoprazole [Protonix] 40 mg PO DAILY 12/20/22 04/27/24 History Pravastatin Sodium [Pravachol] 80 mg PO HS 12/20/22 04/27/24 History Tamsulosin [Flomax] 0.4 mg PO DAILY 12/20/22 04/27/24 History traMADol HCL 50 mg PO TID PRN 12/20/22 04/27/24 History Allergies Allergy/AdvReac Type Severity Reaction Status Date / Time No Known Allergies Allergy Verified 04/27/24 12:16 Physical Exam Osteopathic Statement: *. No significant issues noted on an osteopathic structural exam other than those noted in the History and Physical/Consult. Vitals: Vital Signs Temp Pulse Resp BP Pulse Ox 04/27/24 15:00 53 L 18 131/78 95 04/27/24 14:00 51 L 20 122/76 95 04/27/24 12:30 45 L 18 118/74 96 04/27/24 10:30 97.4 F L 51 L 20 90/47 98 Intake and Output 04/27/24 04/27/24 04/27/24 06:59 14:59 22:59 Other: Weight 80.286 kg Results CBC & Chem 7: 04/27/24 11:00 04/27/24 11:00 Labs: Abnormal Lab Results - Last 24 Hours (Table) 04/27/24 04/27/24 04/27/24 Range/Units 11:00 11:00 13:54 Chloride 109 H (98-107) mmol/L BUN 21 H (9-20) mg/dL Glucose 103 H (74-99) mg/dL Troponin I 0.832 H* 1.740 H* (0.000-0.034) ng/mL
[2024-04-27] MEDS: NITROGLYCERIN SL TABS 0.4 MG TAB SUBLINGUAL PRN (20:31)
[2024-04-27] MEDS: METOPROLOL TARTRATE 12.5 MG TAB PO SCH (20:44)
[2024-04-27] MEDS: ATORVASTATIN 80 MG TAB PO SCH (20:46)
[2024-04-27] MEDS: SODIUM CHLORIDE 0.9% 1,000 ML IV SCH (21:54)
[2024-04-28] MEDS: NITROGLYCERIN-D5W PMX 50 MG in DEXTROSE/WATER 1 250ML.BAG IV SCH (00:01)
[2024-04-28 03:48] LABS: Basophils % (A) 0 %; Eosinophils # (A) 0.1 k/uL (0-0.7); Eosinophils % (A) 1 %; HCT 39.2 % (39.0-53.0); HGB 13.4 gm/dL (13.0-17.5); Lymphocytes % (A) 10 %; MCH 31.6 pg (25.0-35.0); MCHC 34.2 g/dL (31.0-37.0); MCV 92.5 fL (80.0-100.0); Mean Platelet Volume 8.4; Monocytes # (A) 0.5 k/uL (0-1.0); Monocytes % (A) 5 %; Neutrophils # (A) 7.8 k/uL (1.3-7.7); Neutrophils % (A) 82 %; Platelet Count 148 k/uL (150-450); RBC 4.24 m/uL (4.30-5.90); RDW 13.8 % (11.5-15.5); WBC 9.6 k/uL (3.8-10.6)
[2024-04-28 04:20] LABS: ALT 30 U/L (4-49); AST 65 U/L (17-59); African American GFR (CKD) >90 (>60 ml/min/1.73 sqM); Albumin 3.2 g/dL (3.5-5.0); Alkaline Phosphatase 84 U/L (38-126); Anion Gap 4 mmol/L; Blood Urea Nitrogen 16 mg/dL (9-20); Calcium 8.5 mg/dL (8.4-10.2); Carbon Dioxide 23 mmol/L (22-30); Chloride 112 mmol/L (98-107); Glucose 105 mg/dL (74-99); Non-African American GFR(CKD) 85 (>60 ml/min/1.73 sqM); Sodium 139 mmol/L (137-145); Total Bilirubin 0.7 mg/dL (0.2-1.3); Total Protein 5.7 g/dL (6.3-8.2)
[2024-04-28] MEDS: TAMSULOSIN 0.4 MG CAP.ER.24H PO SCH (06:10)
[2024-04-28] MEDS: PANTOPRAZOLE 40 MG TABLET PO SCH (06:10)
[2024-04-28 08:56] LABS: Chol/HDL Ratio 3.64 Ratio
[2024-04-28] MEDS: ACETAMINOPHEN TAB 325 MG TAB PO PRN (09:43)
[2024-04-28] MEDS ORDERED: ALPRAZolam 0.25 MG TAB PO PRN (09:58)
[2024-04-28] MEDS ORDERED: NITROGLYCERIN SL TABS 0.4 MG TAB SUBLINGUAL PRN ×2 (09:58→13:37)
[2024-04-28] MEDS: ATORVASTATIN 80 MG TAB PO STA (10:21)
[2024-04-28] MEDS: ASPIRIN 325 MG TAB PO STA (10:21)
[2024-04-28] MEDS: ASPIRIN 81 MG PO SCH (10:24)
--- NOTE | 2024-04-28 11:09 | P.PN ---
Subjective Progress Note Date: 04/28/24 Patient is a 73-year-old male with hypertension, hyperlipidemia, abdominal aortic aneurysm, CAD with 2 stent placements who is here for chest pressure. He reported 6 days prior he traveled to [place] and during that time experience chest pressure and an intensity of 7 out of 10 nonradiating while running in the airport and was relieved with rest. Since that time, patient has been experiencing chest pressure with the same intensity intermittently, still nonradiating and would be relieved by rest. After returning from travel, the chest pressure was still not relieved which caused him to seek care. He denies lightheadedness, dizziness, nausea, vomiting, sweats, changes in vision, facial asymmetry, shortness of breath, leg tenderness or abdominal pain. In the ER, chest x-ray shows widening mediastinum and congestion. EKG showed sinus bradycardia with T wave inversions in leads V2 to 6. Thoracic aorta CT shows infrarenal aortic aneurysm at 5.3 cm (initially 4.[address] in July 12, 2021). Troponin at 0.832 BNP 1040. Glucose 103, chloride 109, WBC 7.1 hemoglobin 14.9 platelet 167,000 On admission, patient was afebrile 97.4 pulse rate 51 she is decreased respirations 20 blood pressure decreased at 90/47 O2 saturation 98% at room air 04/28/2024 patient seen and examined at bedside. Patient still complains of chest pressure but has a less intensity of around 2 out of 10 but is nonradiating. He has no other complaints or new symptoms. He still is bradycardic on telemetry despite metoprolol being held overnight. WBC 9.6 hemoglobin 13.4 platelet count 1 48,000 PTT 47 sodium 139 potassium 4 chloride 06/10/2011 BUN 16 creatinine 0.88 glucose 105 troponin still peaking and is currently at 2.720 triglyceride 138 cholesterol 120 LDL 61 LDL 26 HDL 33 TSH 1.4 A1c 5.6 Review of systems: Pertinent positives and negatives as discussed in HPI, a complete review of systems was performed and all other systems are negative. Physical examination: Vital signs reviewed General: non toxic, no distress Derm: no unusual rashes/lesions, warm Head: atraumatic, normocephalic, symmetric Eyes: EOMI, anicteric sclera, pupils equal round reactive to light ENT: Nose and ears atraumatic Neck: No cervical lymphadenopathy, trachea midline, supple Mouth: no lip lesion, mucus membranes moist Cardiovascular: S1S2 bradycardic, no murmur Lungs: CTA bilateral, no rhonchi, no rales, no accessory muscle use Abdominal: soft, nondistended, nontender to palpation, no guarding Ext: muscle strength 5 out of 5 in all 4 extremities grossly, no gross muscle atrophy, no contractures, positive dorsalis pedis pulse bilateral, no extremity edema Neuro: CN II-XI grossly intact, no gross focal neuro deficits Psych: Alert and oriented x 3, appropriate affect and mood #. NSTEMI type I Troponins elevated at 2.720. Patient still experiencing chest pressure. Troponin level now. If lower level compared to most recent troponin may discontinue Lipid profile unremarkable, A1c normal, TSH normal CBC, BMP in the a.m. EKG as needed Morphine IV for pain Continue IV heparin. Monitor PTT Lipitor 80 mg p.o. daily Aspirin 81 mg p.o. daily Decrease metoprolol to tartrate to 12.5 mg p.o. twice daily. Hold for heart rate less than 60 Per cardiology will cath today and placed on IV nitroglycerin #. Infrarenal aortic aneurysm, stable Thoracic CT shows infrarenal aortic aneurysm measuring at 5.3 cm which has increased in size from prior CT in July 2021 Consider consult to vascular surgery Chronic Conditions: #. Hypertension #. Hyperlipidemia #. GERD #. Chronic back pain Hold losartan 100 mg Hold Nitrostat sublingual Hold pravastatin F: Encourage oral intake E: None N: Clear liquid diet 2 hours presurgery. Then n.p.o. A: Encourage self ambulation DVT ppx: IV heparin GI ppx: Protonix 40 mg I saw and evaluated the patient during the garcía and critical portions of this encounter, and discussed the case in detail with the resident author of this note, I agree with the Assessment and Plan, and my changes, if any, are highlighted in blue. Objective - Vital Signs Vital signs: Vital Signs Temp 98.3 F 04/28/24 03:10 Pulse 58 L 04/28/24 03:10 Resp 15 04/28/24 03:10 BP 107/56 04/28/24 03:10 Pulse Ox 92 L 04/28/24 03:10 FiO2 Intake & Output 04/27/24 04/28/24 04/28/24 18:59 06:59 18:59 Intake Total 480 99.847 Balance 480 99.847 Weight 80.286 kg 80.4 kg Intake: IV 30 Invasive Line 1 20 Invasive Line 2 10 Intake, IV Titration 69.847 Amount Heparin Sod,Pork in 0.45% 69.847 NaCl 25,000 unit In 0.45 % NaCl 1 250ml.bag @ 12 UNITS/KG/HR 9.634 mls/hr IV .Q24H [facility] Rx#: [id number] Oral 480 Other: Voiding Method Toilet # Voids 1 - Labs CBC & Chem 7: 04/28/24 03:06 04/28/24 03:06 Labs: Abnormal Lab Results - Last 24 Hours (Table) 04/27/24 04/27/24 04/27/24 Range/Units 11:00 11:00 13:54 RBC (4.30-5.90) m/uL Plt Count (150-450) k/uL Neutrophils # (1.3-7.7) k/uL APTT (22.0-30.0) sec Chloride 109 H (98-107) mmol/L BUN 21 H (9-20) mg/dL Glucose 103 H (74-99) mg/dL AST (17-59) U/L Troponin I 0.832 H* 1.740 H* (0.000-0.034) ng/mL Total Protein (6.3-8.2) g/dL Albumin (3.5-5.0) g/dL 04/27/24 04/27/24 04/28/24 Range/Units 18:50 18:50 03:06 RBC 4.24 L (4.30-5.90) m/uL Plt Count 148 L (150-450) k/uL Neutrophils # 7.8 H (1.3-7.7) k/uL APTT 40.3 H (22.0-30.0) sec Chloride (98-107) mmol/L BUN (9-20) mg/dL Glucose (74-99) mg/dL AST (17-59) U/L Troponin I 2.720 H* (0.000-0.034) ng/mL Total Protein (6.3-8.2) g/dL Albumin (3.5-5.0) g/dL 04/28/24 04/28/24 Range/Units 03:06 03:06 RBC (4.30-5.90) m/uL Plt Count (150-450) k/uL Neutrophils # (1.3-7.7) k/uL APTT 47.0 H (22.0-30.0) sec Chloride 112 H (98-107) mmol/L BUN (9-20) mg/dL Glucose 105 H (74-99) mg/dL AST 65 H (17-59) U/L Troponin I (0.000-0.034) ng/mL Total Protein 5.7 L (6.3-8.2) g/dL Albumin 3.2 L (3.5-5.0) g/dL
[2024-04-28] MEDS: fentaNYL (PF) 50 MCG/1 ML VIAL IVP ONE (12:17)
[2024-04-28] MEDS: LIDOCAINE 1% INJ 10MG/ML (20 ML MDV) SQ ONE (12:21)
[2024-04-28] MEDS: VERAPAMIL SYRINGE (5 MG/10 ML) INTRAARTER ONE (12:23)
[2024-04-28] MEDS: HEPARIN SODIUM 1,000 UN/ML (10ML VL) IVP ONE (12:24)
[2024-04-28] MEDS: MIDAZOLAM 2 MG/2 ML VIAL IVP ONE (12:24)
[2024-04-28] MEDS: HEPARIN SODIUM,PORCINE (1 ML) 2,500 UNIT in SODIUM CHLORIDE 0.9% 250 ML IRRIGATION PRN (12:24)
[2024-04-28] MEDS: HEPARIN SODIUM,PORCINE 10,000 UNIT in SODIUM CHLORIDE 0.9% 1,000 ML IRRIGATION PRN (12:24)
[2024-04-28] MEDS: TICAGRELOR 90 MG TAB PO ONE (12:40)
[2024-04-28] MEDS: IOPAMIDOL-300 100ML BTL INJ ONE ×2 (12:41→13:08)
--- NOTE | 2024-04-28 13:09 | P.CRDCN ---
History of Present Illness Consult date: 04/28/24 Reason for Consult (text): NSTEMI History of present illness: This is a 73-year-old male patient of Dr. Cotton with past medical history of coronary artery disease, hypertension, dyslipidemia, peripheral vascular disease, abdominal aortic aneurysm without rupture asymptomatic followed by Dr. Adorno, mild atherosclerosis of bilateral carotid arteries, remote history of tobacco use. We have been asked to evaluate the patient for NSTEMI. Family member gives history that patient has had chest pain since April 21 when they were sprinting through the airport on their way to [place]. Patient did not complain of it at the time but it has continued and seems to be getting worse. It does get worse with activity and is now to the point where he can only walk a few feet. Patient has chronically had difficulty walking due to a bad back and hips. Family members also concerned about his abdominal aortic aneurysm which has increased in size slightly and also that his heart rate has been low in the 40s. During the night, patient had pain 5/10 and a nitroglycerin drip was started. Pain apparently went away but now he states that he has soreness in his chest. Patient has been started on heparin drip and nitroglycerin drip. Blood pressure 106/64, heart rate 49, pulse ox 95% on room air. -EKG: Sinus bradycardia 42 bpm, T wave inversion in I, V4, V5 V6. -Chest x-ray: No acute process -CT angiogram thoracic abdominal and pelvic aorta: Marginal increase in size of infrarenal abdominal aortic aneurysm measuring 5.3 cm. No evidence of intramural hematoma or dissection of the aorta. Moderate atherosclerotic disease of the aorta and its branches. 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 Similar perivesicular fat stranding may represent cystitis or chronic bladder outlet obstruction changes from prostamegaly. Colonic diverticulosis without diverticulitis. Stable emphysematous and pulmonary fibrotic changes. Stable mildly prominent enlarged mediastinal and hilar lymph nodes. -Echocardiogram reveals EF 55 to 60%. No obvious regional wall motion ab normality. Mild concentric LVH. Moderate biatrial dilatation. Mild mitral digitation, moderate tricuspid regurgitation. RVSP 28 mmHg. Aortic root at upper limit of normal measuring 3.8 cm. -Laboratory studies: Troponins 0.832, 1.74, 2.72. TSH 1.48. BUN 21 creatinine 1. Potassium 4. CBC unremarkable. proBNP 1040. -Home cardiac medications: Aspirin 81 mg daily, losartan 100 mg daily, metop rolol tartrate 25 mg twice daily, Nitrostat as needed, pravastatin 80 mg at bedtime. -PTCA of the proximal circumflex in 2012 -Dobutamine stress echocardiogram performed 12/21/2022 was normal EF normal study. Review Of Systems: At the time of my exam: CONSTITUTIONAL: Denies fever or chills. HEENT: Denies blurred vision, vision changes, or eye pain. Denies hemoptysis CARDIOVASCULAR: Denies chest pain. Reports chest soreness. Denies orthopnea. Denies PND. Denies palpitations RESPIRATORY: Denies shortness of breath. GASTROINTESTINAL: Denies abdominal pain. Denies nausea or vomiting. HEMATOLOGIC: Denies bleeding disorders. GENITOURINARY: Denies any blood in urine. SKIN: Denies puritis. Denies rash. Physical examination: Gen: This is a 73-year-old male in no acute distress VS: reviewed HEENT: Head is atraumatic, normocephalic. Pupils equal, round. Sclerae is anicteric. NECK: Supple. No JVD. LUNGS: Clear to auscultation. No wheezes or rhonchi. No intercostal retractions. HEART: Regular rate and rhythm. 2/6 systolic ejection murmur at the base. ABDOMEN: Soft No tenderness. EXTREMITIES: No pedal edema. No calf tenderness. NEUROLOGICAL: Patient is awake, alert and oriented x3. Assessment: NSTEMI Coronary artery disease with previous PCI Hypertension Mixed hyperlipidemia Abdominal aortic aneurysm followed by Dr. Adorno Mild atherosclerosis of bilateral carotid arteries Remote history of tobacco use and dependence Plan: Resume patient's home cardiac medications Continue patient on heparin drip Continue patient on nitroglycerin drip and increase to 30 mcg/min Repeat EKG Schedule patient for cardiac catheterization today with Dr. Cotton Further recommendations to follow based upon clinical course Thank you kindly for this consultation. Nurse practitioner note has been reviewed, I agree with documented findings and plan of care. Patient was seen and examined. Past Medical History Past Medical History: Coronary Artery Disease (CAD), GERD/Reflux, Hyperlipidemia, Hypertension, Myocardial Infarction ([place]), Prostate Disorder Additional Past Medical History / Comment(s): AAA Last Myocardial Infarction Date:: 2011 History of Any Multi-Drug Resistant Organisms: None Reported Past Surgical History: Heart Catheterization With Stent, Hernia Repair Past Anesthesia/Blood Transfusion Reactions: No Reported Reaction Date of Last Stent Placement:: 2011 Past Psychological History: No Psychological Hx Reported Smoking Status: Current every day smoker Past Alcohol Use History: None Reported Past Drug Use History: None Reported - Past Family History Mother Family Medical History: Cancer, CVA/TIA, Hyperlipidemia, Hypertension Additional Family Medical History / Comment(s): breast CA Medications and Allergies Home Medications Medication Instructions Recorded Confirmed Type Aspirin EC [Ecotrin Low Dose] 81 mg PO DAILY 12/20/22 04/27/24 History Losartan Potassium 100 mg PO DAILY 12/20/22 04/27/24 History Metoprolol Tartrate [Lopressor] 25 mg PO BID 12/20/22 04/27/24 History Nitroglycerin Sl Tabs [Nitrostat] 0.4 mg SUBLINGUAL Q5M PRN 12/20/22 04/27/24 History Pantoprazole [Protonix] 40 mg PO DAILY 12/20/22 04/27/24 History Pravastatin Sodium [Pravachol] 80 mg PO HS 12/20/22 04/27/24 History Tamsulosin [Flomax] 0.4 mg PO DAILY 12/20/22 04/27/24 History traMADol HCL 50 mg PO TID PRN 12/20/22 04/27/24 History Allergies Allergy/AdvReac Type Severity Reaction Status Date / Time No Known Allergies Allergy Verified 04/27/24 12:16 Physical Exam Vitals: Vital Signs Temp Pulse Pulse Resp BP BP Pulse Ox 04/28/24 07:50 97.7 F 49 L 17 106/64 95 04/28/24 03:10 98.3 F 58 L 15 107/56 92 L 04/28/24 01:03 52 L 100/51 04/28/24 00:16 107/54 04/27/24 23:20 98 F 48 L 16 114/48 94 L 04/27/24 20:39 140/70 04/27/24 20:20 97.5 F L 49 L 15 121/58 94 L 04/27/24 17:34 98.1 F 55 L 16 126/78 98 04/27/24 17:13 48 L 20 122/67 95 04/27/24 16:00 48 L 18 135/69 95 04/27/24 15:00 53 L 18 131/78 95 04/27/24 14:00 51 L 20 122/76 95 04/27/24 12:30 45 L 18 118/74 96 04/27/24 10:30 97.4 F L 51 L 20 90/47 98 Intake and Output 04/27/24 04/28/24 04/28/24 22:59 06:59 14:59 Intake Total 559.847 20 Balance 559.847 20 Intake: IV 10 20 Invasive Line 1 10 10 Invasive Line 2 10 Intake, IV Titration 69.847 Amount Heparin Sod,Pork in 0.45% 69.847 NaCl 25,000 unit In 0.45 % NaCl 1 250ml.bag @ 12 UNITS/KG/HR 9.634 mls/hr IV .Q24H [facility] Rx#: [id number] Oral 480 Other: Voiding Method Toilet Toilet # Voids 1 1 Weight 80.286 kg 80.4 kg Results 04/28/24 03:06 04/28/24 03:06 Cardiac Enzymes 04/27/24 04/27/24 04/27/24 Range/Units 11:00 11:00 13:54 AST 38 (17-59) U/L Troponin I 0.832 H* 1.740 H* (0.000-0.034) ng/mL 04/27/24 04/28/24 Range/Units 18:50 03:06 AST 65 H (17-59) U/L Troponin I 2.720 H* (0.000-0.034) ng/mL Coagulation 04/27/24 04/27/24 04/27/24 Range/Units 11:00 18:50 19:03 PT 10.3 11.0 (10.0-12.5) sec APTT 28.0 40.3 H (22.0-30.0) sec 04/28/24 Range/Units 03:06 PT (10.0-12.5) sec APTT 47.0 H (22.0-30.0) sec CBC 04/27/24 04/28/24 Range/Units 11:00 03:06 WBC 7.1 9.6 (3.8-10.6) k/uL RBC 4.79 4.24 L (4.30-5.90) m/uL Hgb 14.9 13.4 (13.0-17.5) gm/dL Hct 45.0 39.2 (39.0-53.0) % Plt Count 167 148 L (150-450) k/uL Comprehensive Metabolic Panel 04/27/24 04/28/24 Range/Units 11:00 03:06 Sodium 140 139 (137-145) mmol/L Potassium 4.2 4.0 (3.5-5.1) mmol/L Chloride 109 H 112 H (98-107) mmol/L Carbon Dioxide 28 23 (22-30) mmol/L BUN 21 H 16 (9-20) mg/dL Creatinine 1.00 0.88 (0.66-1.25) mg/dL Glucose 103 H 105 H (74-99) mg/dL Calcium 8.9 8.5 (8.4-10.2) mg/dL AST 38 65 H (17-59) U/L ALT 27 30 (4-49) U/L Alkaline Phosphatase 85 84 (38-126) U/L Total Protein 6.6 5.7 L (6.3-8.2) g/dL Albumin 3.8 3.2 L (3.5-5.0) g/dL Current Medications Generic Name Dose Route Start Last Admin Trade Name Freq PRN Reason Stop Dose Admin Acetaminophen 650 mg 04/27/24 14:08 Acetaminophen Tab 325 Mg Tab PO Q6HR PRN Mild Pain or Fever > 100.5 Aspirin 81 mg 04/28/24 09:00 Aspirin 81 Mg PO DAILY [facility] Atorvastatin Calcium 80 mg 04/27/24 21:00 04/27/24 20:46 Atorvastatin 80 Mg Tab PO 80 mg HS JUANY Administration Heparin Sodium (Porcine) 0 unit 04/27/24 13:13 Heparin Sodium 1,000 Un/Ml (10ml Vl) IV PER PROTOCOL PRN Low PTT Protocol Heparin Sodium/Sodium Chloride 250 mls @ 9.634 mls/hr 04/27/24 13:15 04/27/24 20:47 25,000 unit/ Sodium Chloride IV 14 units/kg/hr .Q24H JUANY 11.24 mls/hr Titration Protocol 12 UNITS/KG/HR Sodium Chloride 1,000 mls @ 80 mls/hr 04/27/24 20:45 04/27/24 21:54 Saline 0.9% IV 80 mls/hr .[id number] JUANY Administration Nitroglycerin/Dextrose 50 mg/ 250 mls @ 4.5 mls/hr 04/27/24 23:30 04/28/24 00:01 IV Solution IV 15 mcg/min .Q24H JUANY 4.5 mls/hr Administration Protocol 15 MCG/MIN Metoprolol Tartrate 12.5 mg 04/27/24 21:00 04/27/24 20:44 Metoprolol Tartrate 12.5 Mg Tab PO Not Given BID JUANY Morphine Sulfate 4 mg 04/27/24 14:08 Morphine Sulfate 4 Mg/Ml Syringe IV Q4HR PRN Severe Pain (Scale 7 to 10) Naloxone HCl 0.2 mg 04/27/24 14:08 Naloxone 0.4 Mg/Ml 1 Ml Vial IV Q2M PRN Opioid Reversal Nitroglycerin 0.4 mg 04/27/24 20:28 04/27/24 20:31 Nitroglycerin Sl Tabs 0.4 Mg Tab SUBLINGUAL 0.4 mg Q5M PRN Administration Chest Pain Pantoprazole Sodium 40 mg 04/28/24 07:30 04/28/24 06:10 Pantoprazole 40 Mg Tablet PO 40 mg 0730 [facility] Administration Tamsulosin HCl 0.4 mg 04/28/24 09:00 04/28/24 06:10 Tamsulosin 0.4 Mg Cap.Er.24h PO 0.4 mg DAILY JUANY Administration Tramadol HCl 50 mg 04/27/24 17:42 Tramadol 50 Mg Tab PO TID PRN Pain Intake and Output 04/27/24 04/28/24 04/28/24 22:59 06:59 14:59 Intake Total 559.847 20 Balance 559.847 20 Intake: IV 10 20 Invasive Line 1 10 10 Invasive Line 2 10 Intake, IV Titration 69.847 Amount Heparin Sod,Pork in 0.45% 69.847 NaCl 25,000 unit In 0.45 % NaCl 1 250ml.bag @ 12 UNITS/KG/HR 9.634 mls/hr IV .Q24H [facility] Rx#: [id number] Oral 480 Other: Voiding Method Toilet Toilet # Voids 1 1 Weight 80.286 kg 80.4 kg 04/28/24 03:06 04/28/24 03:06
[2024-04-28] MEDS ORDERED: ATROPINE SULFATE 0.1 MG/ML 10ML SYRINGE IV PRN (13:37)
[2024-04-28] MEDS ORDERED: RX INFO: IV CONTRAST WAS GIVEN 1 EACH MISC MISCELLANE PRN (13:37)
[2024-04-28] MEDS ORDERED: ZOLPIDEM 5 MG TAB PO PRN (13:37)
[2024-04-28] MEDS ORDERED: MAG HYDROX/AL HYDROX/SIMETH 30 ML CUP PO PRN (13:37)
--- NOTE | 2024-04-28 13:46 | P.CARDCATH ---
Date of Procedure: 04/28/24 Description of Procedure: Cardiac Catheterization: The patient is a 73-year-old male with known history of hypertension, hyperlipidemia, chronic tobacco use and prior CAD with angioplasty of the proximal left circumflex in 2011 who presented with chest discomfort for the last week and evidence of non-STEMI by enzyme changes. Recommendations were made regarding cardiac catheterization, the risks and the complications were discussed with the patient who is in full understanding and agreement. 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 Using Xylocaine Anesthesia and modified Seldinger technique, a 6-Guamanian sheath was introduced in the right radial artery . Subsequently, selective coronary angiography was performed using a 5-Guamanian 3.5 bend Shi catheter. Multiple views of the coronary artery including hemiaxial views were obtained. The 5 Guamanian pigtail catheter was used to cross the aortic valve and LVEDP was calculated. PCI: After removing the catheters a 6 Guamanian AL 0.75 guiding catheter was introduced into the system and after cannulating the left main a 0.014 BMW J-wire with the help of a microcatheter fine cross was used to cross the total occlusion and p ositioned distally subsequently a 2.5 x 12 mm trek balloon was advanced and 2 inflation at 8 fabiano were done. After removing the catheter a Weeve Webb eye IVUS catheter was then introduced and revealed a mildly calcified lesion with a distal vessel measuring 3.7 to 3.9 mm in diameter. After removing the catheter a 3.5 x 23 mm Xience vicenta point stent was deployed at 16 fabiano, subsequently repeat IVUS imaging was performed. After removing the catheter a 4.0 x 20 mm NC trek balloon was advanced and 1 inflation at 10 fabiano was done. Repeat IVUS showed good apposition of the stent with no evidence to suggest dissection. At that time the wire was removed images were obtained and revealed stable successful stenting. Following that, catheter and sheath were removed. Hemostasis was obtained with deployment of vascular band . There was no immediate complication. Patient was returned to room in stable condition. Of note, the patient received a total of 7000 units of intravenous heparin as well as intra-arterial verapamil. He received a loading dose of Brilinta. His ACT was followed. He had no significant EKG changes or chest discomfort with the inflations. Findings: Left main: This is a large size vessel, bifurcating into LAD and left circumflex, the mid and distal left main has a 20 to 30% tubular lesion LAD: This is a large size vessel, reaching to the apex, tortuous throughout its course. The proximal segment has 20 to 30% plaque in the midsegment at the takeoff of a diagonal branch has a 80% lesion involving the takeoff of the diagonal branch, the rest of the vessel has no high-grade stenosis Left circumflex: This is a large nondominant vessel giving rise to a large obtuse marginal branch, heavily tortuous proximally. The proximal segment has an eccentric 50 to 60% plaque. The mid segment has another 30 to 40% plaque. The rest of the vessel has no high-grade stenosis RCA: This is a large dominant vessel, proximally has a 20 to 30% tubular lesion and is totally occluded in the midsegment with no antegrade flow. There is collaterals from the left system toward the PDA and the PLV Left Ventriculogram: Not performed Hemodynamics: There was no gradient across the aortic valve, LVEDP was 25-30 mmHg Conclusion: 1. Acute occlusion of the mid RCA with left to right collaterals 2. Significant disease in the mid LAD that was described in 2012 3. Moderate significant disease in the proximal tortuous left circumflex 4. Successful stenting of the mid LAD with IVUS imaging and reduction of stenosis from 100% to less than 5% with JOSE ANGEL-3 flow 5. Elevated EDP Recommendations: The patient will continue on aspirin and Brilinta for 1 year without any interruption, the importance of dual antiplatelet treatment was discussed with him as well as the importance of smoking cessation. He will be referred to [place] quit line. Aggressive coronary risks modification will be continued, attempting to maintain LDL below 70 mg/dL. The findings and the recommendations were discussed with the patient and the family and they were in full understanding and agreement. Duration of sedation is 51 minutes.
[2024-04-28] MEDS: SODIUM CHLORIDE 0.9% 1,000 ML in EMPTY BAG 1 BAG IV SCH (14:23)
[2024-04-28] MEDS: ALPRAZolam 0.5 MG TAB PO PRN (14:59)
[2024-04-28] MEDS: NALOXONE 0.4 MG/ML 1 ML VIAL IV PRN (17:48)
[2024-04-28] MEDS: FLUMAZENIL 0.1 MG/ML 5 ML VIAL IVP STA (18:32)
--- NOTE | 2024-04-28 18:50 | XR ---
EXAMINATION TYPE: XR chest 1V portable DATE OF EXAM: 04/28/2024 6:23 PM COMPARISON: Chest radiographs from 04/27/2024. CLINICAL INDICATION: Male, 73 years old with history of apnea, SOB; [facility] TECHNIQUE: XR chest 1V portable Frontal view of the chest. FINDINGS: Lungs/Pleura: Airspace opacities in the left lower lobe. There is no evidence of pleural effusion, fo amanda consolidation, or pneumothorax. Pulmonary vascularity: Unremarkable. Heart/mediastinum: Cardiomediastinal silhouette is unremarkable. Musculoskeletal: No acute osseous pathology. IMPRESSION: Left lower lobe airspace disease correlate for pneumonia. [facility], , 04/28/2024 6:48 PM
[2024-04-28] MEDS: TICAGRELOR 90 MG TAB PO SCH (20:23)
[2024-04-29 06:49] LABS: Basophils % (A) 0 %; Eosinophils # (A) 0.1 k/uL (0-0.7); Eosinophils % (A) 1 %; HCT 38.9 % (39.0-53.0); HGB 13.1 gm/dL (13.0-17.5); Lymphocytes # (A) 0.9 k/uL (1.0-4.8); Lymphocytes % (A) 12 %; MCH 31.3 pg (25.0-35.0); MCHC 33.7 g/dL (31.0-37.0); MCV 92.8 fL (80.0-100.0); Mean Platelet Volume 8.5; Monocytes # (A) 0.5 k/uL (0-1.0); Monocytes % (A) 6 %; Neutrophils # (A) 6.1 k/uL (1.3-7.7); Neutrophils % (A) 80 %; Platelet Count 133 k/uL (150-450); RBC 4.19 m/uL (4.30-5.90); RDW 13.8 % (11.5-15.5); WBC 7.7 k/uL (3.8-10.6)
[2024-04-29 07:06] LABS: African American GFR (CKD) >90 (>60 ml/min/1.73 sqM); Anion Gap 3 mmol/L; Blood Urea Nitrogen 11 mg/dL (9-20); Calcium 8.6 mg/dL (8.4-10.2); Carbon Dioxide 24 mmol/L (22-30); Chloride 113 mmol/L (98-107); Glucose 90 mg/dL (74-99); Non-African American GFR(CKD) 85 (>60 ml/min/1.73 sqM); Potassium 3.8 mmol/L (3.5-5.1); Sodium 140 mmol/L (137-145)
[2024-04-29 09:54] VITALS: RESP 17; TEMP 97.7
[2024-04-29 12:15] VITALS: BMI 27.2
[2024-04-29 12:17] VITALS: BP 153/77; PULSE 61
--- NOTE | 2024-04-29 12:36 | P.PN ---
Subjective Progress Note Date: 04/29/24 Reason for Consult (text): NSTEMI History of present illness: This is a 73-year-old male patient of Dr. Cotton with past medical history of coronary artery disease, hypertension, dyslipidemia, peripheral vascular disease, abdominal aortic aneurysm without rupture asymptomatic followed by Dr. Adorno, mild atherosclerosis of bilateral carotid arteries, remote history of tobacco use. We have been asked to evaluate the patient for NSTEMI. Family member gives history that patient has had chest pain since April 21 when they were sprinting through the airport on their way to [place]. Patient did not complain of it at the time but it has continued and seems to be getting worse. It does get worse with activity and is now to the point where he can only walk a few feet. Patient has chronically had difficulty walking due to a bad back and hips. Family members also concerned about his abdominal aortic aneurysm which has increased in size slightly and also that his heart rate has been low in the 40s. During the night, patient had pain 5/10 and a nitroglycerin drip was started. Pain apparently went away but now he states that he has soreness in his chest. Patient has been started on heparin drip and nitroglycerin drip. Blood pressure 106/64, heart rate 49, pulse ox 95% on room air. -EKG: Sinus bradycardia 42 bpm, T wave inversion in I, V4, V5 V6. -Chest x-ray: No acute process -CT angiogram thoracic abdominal and pelvic aorta: Marginal increase in size of infrarenal abdominal aortic aneurysm measuring 5.3 cm. No evidence of int ramural hematoma or dissection of the aorta. Moderate atherosclerotic disease of the aorta and its branches. 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 Similar perivesicular fat stranding may represent cystitis or chronic bladder outlet obstruction changes from prostamegaly. Colonic diverticulosis without diverticulitis. Stable emphysematous and pulmonary fibrotic changes. Stable mildly prominent enlarged mediastinal and hilar lymph nodes. -Echocardiogram reveals EF 55 to 60%. No obvious regional wall motion abnormality. Mild concentric LVH. Moderate biatrial dilatation. Mild mitral digitation, moderate tricuspid regurgitation. RVSP 28 mmHg. Aortic root at upper limit of normal measuring 3.8 cm. -Laboratory studies: Troponins 0.832, 1.74, 2.72. TSH 1.48. BUN 21 creatinine 1. Potassium 4. CBC unremarkable. proBNP 1040. -Home cardiac medications: Aspirin 81 mg daily, losartan 100 mg daily, metoprolol tartrate 25 mg twice daily, Nitrostat as needed, pravastatin 80 mg at bedtime. -PTCA of the proximal circumflex in 2011 -Dobutamine stress echocardiogram performed 12/21/2022 was normal EF normal study. 04/29/2024 Patient seen and examined. Yesterday, patient underwent cardiac catheterization which revealed acute occlusion of the mid RCA with [id number] collaterals, significant disease in the mid LAD that was described in 2012, moderate significant disease in the proximal tortuous left circumflex. Patient subsequently underwent successful stenting of the mid LAD with IVUS imaging. Patient was started on Brilinta. Blood pressure 153/77, heart rate 61, pulse ox 95% on room air. Repeat blood work reveals BUN 11 creatinine 0.87. Physical examination: Gen: This is a 73-year-old male in no acute distress VS: reviewed HEENT: Head is atraumatic, normocephalic. Pupils equal, round. Sclerae is anicteric. NECK: Supple. No JVD. LUNGS: Clear to auscultation. No wheezes or rhonchi. No intercostal retractions. HEART: Regular rate and rhythm. 2/6 systolic ejection murmur at the base. ABDOMEN: Soft No tenderness. EXTREMITIES: No pedal edema. No calf tenderness. NEUROLOGICAL: Patient is awake, alert and oriented x3. Assessment: NSTEMI Coronary artery disease with previous PCI Hypertension Mixed hyperlipidemia Abdominal aortic aneurysm followed by Dr. Adorno Mild atherosclerosis of bilateral carotid arteries Remote history of tobacco use and dependence Plan: Continue patient's home cardiac medications Continue patient on Brilinta and aspirin for 1 year and pravastatin switched to atorvastatin, prescription sent to his pharmacy Smoking cessation. Patient will be provided the [place] quit line information at discharge Patient is cleared for discharge and follow-up with Dr. Cotton in 1 week. Nurse practitioner note has been reviewed, I agree with documented findings and plan of care. Patient was seen and examined. Objective - Vital Signs Vital signs: Vital Signs Temp 97.7 F 04/29/24 08:00 Pulse 60 04/29/24 08:00 Resp 17 04/29/24 08:00 BP 122/62 04/29/24 08:00 Pulse Ox 96 04/29/24 08:00 FiO2 Intake & Output 04/28/24 04/29/24 04/29/24 18:59 06:59 18:59 Intake Total 280 40 160 Balance 280 40 160 Weight 81.2 kg Intake: IV 280 40 10 Invasive Line 1 20 Invasive Line 2 20 10 Oral 150 Other: Voiding Method Toilet Toilet Toilet # Voids 1 1 - Labs CBC & Chem 7: 04/29/24 06:13 04/29/24 06:13 Labs: Abnormal Lab Results - Last 24 Hours (Table) 04/28/24 04/29/24 04/29/24 Range/Units 14:33 06:13 06:13 RBC 4.19 L (4.30-5.90) m/uL Hct 38.9 L (39.0-53.0) % Plt Count 133 L (150-450) k/uL Lymphocytes # 0.9 L (1.0-4.8) k/uL Chloride 113 H (98-107) mmol/L Troponin I 13.500 H* (0.000-0.034) ng/mL
--- NOTE | 2024-04-29 15:05 | P.DS ---
Providers Date of admission: 04/27/24 15:16 Attending physician: Zhane Stevens MD Consults: 04/27/24 14:08 Consult Physician Routine Consulting Provider: Neil Ramirez Consult Reason/Comments: NSTEMI Do you want consulting provider notified?: Yes, Notify in am 04/28/24 13:37 Consult Physician Routine Consulting Provider: [facility] Consult Reason/Comments: Post Interventional Patient Do you want consulting provider notified?: Already Contacted Primary care physician: [facility] Course: Patient is a 73-year-old male with hypertension, hyperlipidemia, abdominal a ortic aneurysm, CAD with 2 stent placements who is here for chest pressure. He reported 6 days prior he traveled to [place] and during that time experience chest pressure and an intensity of 7 out of 10 nonradiating while running in the airport and was relieved with rest. Since that time, patient has been experiencing chest pressure with the same intensity intermittently, still nonradiating and would be relieved by rest. After returning from travel, the chest pressure was still not relieved which caused him to seek care. He denies lightheadedness, dizziness, nausea, vomiting, sweats, changes in vision, facial asymmetry, shortness of breath, leg tenderness or abdominal pain. In the ER, chest x-ray shows widening mediastinum and congestion. EKG showed sinus bradycardia with T wave inversions in leads V2 to 6. Thoracic aorta CT shows infrarenal aortic aneurysm at 5.3 cm (initially 4.[address] in July 12, 2021). Troponin at 0.832 BNP 1040. Glucose 103, chloride 109, WBC 7.1 h emoglobin 14.9 platelet 167,000. Heart rate 51 and blood pressure decreased at 90/47 O2 saturation 98% at room air. Patient was admitted for evaluation NSTEMI type I. Cardiology consulted was placed on IV heparin, nitroglycerin drip and was scheduled for cardiac catheterization on 04/28. Cardiac catheterization found acute occlusion of the mid RCA with [id number] collaterals with successful stenting of the mid LAD. He was prescribed Brilinta for a year, atorvastatin high intensity and advised smoking cessation. Patient symptoms improved after catheterization. Patient was cleared by cardiology for discharge today with new medications mentioned above and advised to follow-up with Dr. Cotton after 1 week. Assessment: #. NSTEMI type I #. Infrarenal aortic aneurysm, stable #. Hypertension #. Hyperlipidemia #. GERD #. Chronic back pain #. Coronary artery disease with previous PCI I saw and evaluated the patient during the garcía and critical portions of this encounter, and discussed the case in detail with the resident author of this note, I agree with the Assessment and Plan, and my changes, if any, are mentioned below. Patient follows Dr. Adorno for AAA. Advised to follow up within 1-2 weeks. Patient Condition at Discharge: Good Plan - Discharge Summary Discharge Rx Participant: No New Discharge Prescriptions: New Ticagrelor [Brilinta] 90 mg PO BID #180 tab Atorvastatin [Lipitor] 80 mg PO HS #90 tab Continue Tamsulosin [Flomax] 0.4 mg PO DAILY Aspirin EC [Ecotrin Low Dose] 81 mg PO DAILY traMADol HCL 50 mg PO TID PRN PRN Reason: Pain Pantoprazole [Protonix] 40 mg PO DAILY Nitroglycerin Sl Tabs [Nitrostat] 0.4 mg SUBLINGUAL Q5M PRN PRN Reason: Chest Pain Changed Metoprolol Tartrate [Lopressor] 12.5 mg PO BID #0 Discontinued Pravastatin Sodium [Pravachol] 80 mg PO HS Losartan Potassium 100 mg PO DAILY Discharge Medication List Aspirin EC [Ecotrin Low Dose] 81 mg PO DAILY 12/20/22 [History] Nitroglycerin Sl Tabs [Nitrostat] 0.4 mg SUBLINGUAL Q5M PRN 12/20/22 [History] Pantoprazole [Protonix] 40 mg PO DAILY 12/20/22 [History] Tamsulosin [Flomax] 0.4 mg PO DAILY 12/20/22 [History] traMADol HCL 50 mg PO TID PRN 12/20/22 [History] Atorvastatin [Lipitor] 80 mg PO HS #90 tab 04/29/24 [Rx] Metoprolol Tartrate [Lopressor] 12.5 mg PO BID #0 04/29/24 [Rx] Ticagrelor [Brilinta] 90 mg PO BID #180 tab 04/29/24 [Rx] Follow up Appointment(s)/Referral(s): Maurilio Cotton MD [Primary Care Provider] - 1 Week (will call with appointment date.) None,Stated [REFERRING] - 1-2 days Patient Instructions/Handouts: Heart Attack (DC), After Radial Heart Catheterization (GEN) Discharge Disposition: HOME SELF-CARE
== END 2024-04-29 13:10 | disposition home or self-care (01) | DRG 322 ==
LOC: EC 10:29 → 3SCARD 15:16
PROVIDERS: ADMIT Family Medicine; ATTEND Family Medicine
PROC: B240ZZ3 Ultrasonography of Single Coronary Artery, Intravascular (ICD-10-PCS; principal; 2024-04-28 11:00)
PROC: 4A023N7 Measurement of Cardiac Sampling and Pressure, Left Heart, Percutaneous Approach (ICD-10-PCS; principal; 2024-04-28 11:00)
PROC: B2111ZZ Fluoroscopy of Multiple Coronary Arteries using Low Osmolar Contrast (ICD-10-PCS; principal; 2024-04-28 11:00)
PROC: 027034Z Dilation of Coronary Artery, One Artery with Drug-eluting Intraluminal Device, Percutaneous Approach (ICD-10-PCS; principal; 2024-04-28 11:00)
DX: I21.4 Non-ST elevation (NSTEMI) myocardial infarction (principal); I74.5 Embolism and thrombosis of iliac artery; I70.0 Atherosclerosis of aorta; I71.43 Infrarenal abdominal aortic aneurysm, without rupture; J44.9 Chronic obstructive pulmonary disease, unspecified; I73.9 Peripheral vascular disease, unspecified; I25.10 Atherosclerotic heart disease of native coronary artery without angina pectoris; I65.23 Occlusion and stenosis of bilateral carotid arteries; I10 Essential (primary) hypertension; I07.1 Rheumatic tricuspid insufficiency; E78.2 Mixed hyperlipidemia; I25.2 Old myocardial infarction; K21.9 Gastro-esophageal reflux disease without esophagitis; K57.30 Diverticulosis of large intestine without perforation or abscess without bleeding; G89.29 Other chronic pain; M54.9 Dorsalgia, unspecified; I95.9 Hypotension, unspecified; R26.2 Difficulty in walking, not elsewhere classified; N42.9 Disorder of prostate, unspecified; F17.210 Nicotine dependence, cigarettes, uncomplicated; Z71.6 Tobacco abuse counseling; Z79.82 Long term (current) use of aspirin; Z79.899 Other long term (current) drug therapy; Z95.5 Presence of coronary angioplasty implant and graft
CPT/HCPCS: 36415; 71045; 71046; 71275; 74174; 80048; 80053; 80061; 83036; 83690; 83735; 83880; 84443; 84484; 85025; 85610; 85730; 92978; 93005; 93306; 93458; 96361; 96365; 96366; 99285

== ENCOUNTER → 2024-06-01 | Outpatient (CLI) | payer OTHER ==
--- NOTE | 2024-06-01 11:56 | CT ---
INDICATION: Patient age:Male; 73 years old; Reason for study: J84.9 INTERSTITIAL PULMONARY DISEASE, UNSPECIFIED; [facility]. COMPARISON: CTA thoracoabdominal pelvis aorta 04/27/2024, 07/12/[address] 01/26/2023, CTA chest 023 TECHNIQUE: Multiple thin axial images were obtained through the chest at selected intervals. Prone and supine in spiratory along with supine expiratory images were submitted for review. Please note that due to inte rval acquisition images as defined by high-resolution CT protocol the entire lung parenchyma is not e valuated, therefore small nodular densities may not be visualized. Evaluation of vascular structures , viscera and lymphatics is limited due to lack of intravenous contrast administration. One or more C T dose reduction strategies were utilized during this examination. Total DLP 1310.00 mGycm. FINDINGS: LUNGS: Mild centrilobular and paraseptal emphysematous changes. No honeycombing. Similar patchy subpl eural reticular interstitial opacities. No architectural distortion. Similar region of atelectasis wi thin the left lower lobe. Diffuse cylindrical bronchiectasis. No acute area of infiltrative or consol idative change. LARGE AIRWAYS: Central airways are patent. No dynamic airway collapse on expiratory imaging. PLEURA: No pleural effusion or thickening. HEART AND PERICARDIUM: The heart is mildly enlarged. There is no pericardial effusion. Mild coronary artery calcifications present. MEDIASTINUM AND NANETTE: No mediastinal or hilar lymphadenopathy or soft tissue mass. VESSELS: The thoracic aorta is normal in course and caliber. Mild atherosclerotic calcification of t he aorta and its branches. CHEST WALL AND DIAPHRAGM: Normal. LOWER NECK: Normal. 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 Partial visualiz ation of the left superior pole renal 2.7 cm cyst. MUSCULOSKELETAL: No acute fracture. IMPRESSION: Overall similar nonspecific interstitial pulmonary disease without honeycombing. [facility], , 06/01/2024 11:54 AM
== END | disposition home or self-care (01) ==
LOC: RADCTMAIN 10:51
PROVIDERS: ATTEND Internal Medicine Critical Care Medicine
DX: J98.4 Other disorders of lung (principal)
CPT/HCPCS: 71250